=== PATIENT | male | born 1970 | race Caucasian/White ===

== ENCOUNTER 2018-10-02 22:01 | Inpatient (IN) | payer SELFPAY ==
[2018-10-02] MEDS ORDERED: Insulin Regular, Human 100 Units/ML 10 ML Vial IVPUSH ONE ×2 (22:28→23:40)
[2018-10-02] MEDS ORDERED: Sodium Chloride 0.9% 1,000 ML IV ONE (22:28)
--- NOTE | 2018-10-02 22:28 | EDM.PDOC ---
ED HPI GENERAL MEDICAL PROBLEM - General Chief Complaint: Lower Extremity Injury/Pain Stated Complaint: SWELLING ON RT FOOT Time Seen by Provider: 10/02/18 22:25 Source of Information: Reports: Patient - History of Present Illness INITIAL COMMENTS - FREE TEXT/NARRATIVE: HISTORY AND PHYSICAL: History of present illness: [Patient presents with diabetic foot ulcer concerning the right great toe area proximal toes open third degree foot ulcer with cellulitis or some exudate for culture will obtain this Patient is a noncompliant diabetic he has not taken his medication for 4 months , he is agreeable to lab and x-ray but is already mentioning that he refuses to stay in the hospital He denies fever nausea vomiting chills sweats no chest pain shortness breath headache dizziness palpitation no bowel or urine symptoms Edition was agreeable to the lab and x-ray will follow on redirect as patient allows ] Review of systems: As per history of present illness and below otherwise all systems reviewed and negative. Past medical history: As per history of present illness and as reviewed below otherwise noncontributory. Surgical history: As per history of present illness and as reviewed below otherwise noncontributory. Social history: No reported history of drug or alcohol abuse. Family history: As per history of present illness and as reviewed below otherwise noncontributory. Physical exam: HEENT: Atraumatic, normocephalic, pupils reactive, negative for conjunctival pallor or scleral icterus, mucous membranes moist, throat clear, neck supple, nontender, trachea midline. Lungs: Clear to auscultation, breath sounds equal bilaterally, chest nontender. Heart: S1S2, regular, negative for clicks, rubs, or JVD. Abdomen: Soft, nondistended, nontender. Negative for masses or hepatosplenomegaly. Negative for costovertebral tenderness. Pelvis: Stable nontender. Genitourinary: Deferred. Rectal: Deferred. Extremities: Atraumatic, negative for cords or calf pain. Neurovascular unremarkable. Right foot unaffected above the ankle he does have a large blister lesion on the dorsum of his foot as well as a's third degree diabetic ulcer over the proximal medial great toe with some exudate in the ulcer for culture Neuro: Awake, alert, oriented. Cranial nerves II through XII unremarkable. Cerebellum unremarkable. Motor and sensory unremarkable throughout. Exam nonfocal. Diagnostics: []CBC CMP UA blood cultures 2 Wound culture X-ray right foot 2 views Chest 1 view EKG Therapeutics: [ normal saline Insulin ]10 units IV/10 units subcutaneous, 5 units regular insulin IV Rocephin 1 g IV Impression: [ diabetic foot ulcer glucose greater than 500 on arrival Uncontrolled diabetes Medication noncompliance Definitive disposition and diagnosis as appropriate pending reevaluation and review of above. - Related Data Allergies Allergy/AdvReac Type Severity Reaction Status Date / Time No Known Allergies Allergy Verified 10/02/18 22:14 Home Meds: Home Meds . [No Known Home Meds] 10/02/18 [History] Review of Systems - Review of Systems Review Of Systems: See Below ED EXAM, GENERAL - Physical Exam Exam: See Below Course - Vital Signs Last Recorded V/S: Last Vital Signs Temp 97.9 F 10/02/18 23:07 Pulse 94 10/02/18 23:07 Resp 18 10/02/18 23:07 BP 138/65 10/02/18 23:07 Pulse Ox 98 10/02/18 23:07 - Orders/Labs/Meds Orders: Active Orders 24 hr Category Date Time Status EKG Documentation Completion [RC] STAT Care 10/02/18 22:32 Active CULTURE BLOOD [BC] Stat Lab 10/02/18 22:45 Received CULTURE BLOOD [BC] Stat Lab 10/02/18 22:45 Received CULTURE WOUND [RM] Stat Lab 10/02/18 20:23 Received Sodium Chloride 0.9% [Normal Saline] 1,000 ml Med 10/02/18 23:45 Active IV STAT Blood Culture x2 Reflex Set [OM.PC] Stat Oth 10/02/18 22:29 Ordered Medication Orders Sodium Chloride (Normal Saline) 1,000 mls @ 125 mls/hr IV STAT MAGDA Labs: Laboratory Tests 10/02/18 10/02/18 10/02/18 Range/Units 22:20 22:20 23:10 WBC 12.08 H (4.0-11.0) K/uL RBC 3.82 L (4.50-5.90) M/uL Hgb 11.0 L (13.0-17.0) g/dL Hct 33.5 L (38.0-50.0) % MCV 87.7 (80.0-98.0) fL MCH 28.8 (27.0-32.0) pg MCHC 32.8 (31.0-37.0) g/dL RDW Std Deviation 42.1 (28.0-62.0) fl RDW Coeff of Hiro 13 (11.0-15.0) % Plt Count 305 (150-400) K/uL MPV 10.10 (7.40-12.00) fL Neut % (Auto) 77.0 (48.0-80.0) % Lymph % (Auto) 16.4 (16.0-40.0) % [place] % (Auto) 4.8 (0.0-15.0) % Eos % (Auto) 1.3 (0.0-7.0) % Baso % (Auto) 0.5 (0.0-1.5) % Neut # (Auto) 9.3 H (1.4-5.7) K/uL Lymph # (Auto) 2.0 (0.6-2.4) K/uL [place] # (Auto) 0.6 (0.0-0.8) K/uL Eos # (Auto) 0.2 (0.0-0.7) K/uL Baso # (Auto) 0.1 (0.0-0.1) K/uL Nucleated RBC % 0.0 /100WBC Nucleated RBCs # 0 K/uL Sodium 133 L (136-148) mmol/L Potassium 4.9 (3.5-5.1) mmol/L Chloride 95 L (98-107) mmol/L Carbon Dioxide 28.6 (21.0-32.0) mmol/L BUN 26 H (7.0-18.0) mg/dL Creatinine 1.4 H (0.8-1.3) mg/dL Est Cr Clr Drug Dosing 51.93 mL/min Estimated GFR (MDRD) 54.1 ml/min Glucose 731 H* (74-106) mg/dL Calcium 9.5 (8.5-10.1) mg/dL Total Bilirubin 0.5 (0.2-1.0) mg/dL AST 13 L (15-37) IU/L ALT 28 (14-63) IU/L Alkaline Phosphatase 116 (46-116) U/L Total Protein 7.6 (6.4-8.2) g/dL Albumin 3.4 (3.4-5.0) g/dL Globulin 4.2 H (2.6-4.0) g/dL Albumin/Globulin Ratio 0.8 L (0.9-1.6) Urine Color YELLOW Urine Appearance CLEAR Urine pH 6.0 (5.0-8.0) Ur Specific [place] <= 1.005 (1.001-1.035) Urine Protein NEGATIVE (NEGATIVE) mg/dL Urine Glucose (UA) >=1000 (NEGATIVE) mg/dL Urine Ketones NEGATIVE (NEGATIVE) mg/dL Urine Occult Blood SMALL H (NEGATIVE) Urine Nitrite NEGATIVE (NEGATIVE) Urine Bilirubin NEGATIVE (NEGATIVE) Urine Urobilinogen 0.2 (<2.0) EU/dL Ur Leukocyte Esterase NEGATIVE (NEGATIVE) Urine RBC 0-2 (0-2/HPF) Urine WBC 0-1 (0-5/HPF) Ur Epithelial Cells RARE (NONE-FEW) Urine Bacteria RARE (NEGATIVE) Meds: Medications Generic Name Dose Route Start Last Admin Trade Name Freq PRN Reason Stop Dose Admin Sodium Chloride 1,000 mls @ 125 mls/hr 10/02/18 23:45 Normal Saline IV STAT MAGDA Discontinued Medications Generic Name Dose Route Start Last Admin Trade Name Freq PRN Reason Stop Dose Admin Sodium Chloride 1,000 mls @ 999 mls/hr 10/02/18 22:28 10/02/18 22:30 Normal Saline IV 10/02/18 23:28 999 mls/hr STAT ONE Administration Ceftriaxone Sodium/Dextrose 1 50 mls @ 100 mls/hr 10/02/18 22:30 10/02/18 22: 37 gm/ Premix IV 10/02/18 22:59 100 mls/hr ONETIME ONE Administration Insulin Human Regular 10 unit 10/02/18 22:28 10/02/18 22:35 Novolin R IVPUSH 10/02/18 22:29 10 unit ONETIME ONE Administration Protocol Insulin Human Regular 10 unit 10/02/18 22:29 10/02/18 22:38 Novolin R SUBCUT 10/02/18 22:30 10 units NOW STA Administration Protocol Insulin Human Regular 5 unit 10/02/18 23:40 Novolin R IVPUSH 10/02/18 23:41 ONETIME ONE Protocol Departure - Departure Time of Disposition: 23:46 Disposition: Admitted As Inpatient 66 Condition: Fair Clinical Impression: Hyperglycemia, Diabetic foot ulcer, Noncompliance with medication regimen - Discharge Information Referrals: PCP,None [Primary Care Provider] - Forms: ED Department Discharge - My Orders Last 24 Hours: My Active Orders 10/02/18 20:23 CULTURE WOUND [RM] Stat 10/02/18 22:29 Blood Culture x2 Reflex Set [OM.PC] Stat 10/02/18 22:32 EKG Documentation Completion [RC] STAT 10/02/18 22:45 CULTURE BLOOD [BC] Stat CULTURE BLOOD [BC] Stat 10/02/18 23:45 Sodium Chloride 0.9% [Normal Saline] 1,000 ml IV STAT - Assessment/Plan Last 24 Hours: My Active Orders 10/02/18 20:23 CULTURE WOUND [RM] Stat 10/02/18 22:29 Blood Culture x2 Reflex Set [OM.PC] Stat 10/02/18 22:32 EKG Documentation Completion [RC] STAT 10/02/18 22:45 CULTURE BLOOD [BC] Stat CULTURE BLOOD [BC] Stat 10/02/18 23:45 Sodium Chloride 0.9% [Normal Saline] 1,000 ml IV STAT
[2018-10-02] MEDS ORDERED: Insulin Regular, Human 100 Units/ML 10 ML Vial SUBCUT STA (22:29)
[2018-10-02] MEDS ORDERED: cefTRIAXone 1 GM in Premix Bag 1 BAG IV ONE (22:30)
--- NOTE | 2018-10-02 23:19 | CR ---
INDICATION: pain TECHNIQUE: Chest 1 view. COMPARISON: None. FINDINGS: Cardiovascular and mediastinum: Heart size and vasculature are normal in caliber and appearance. Mediastinum is within normal limits. Lungs and pleural space: Lungs are clear. No sign of infiltrate or mass. No sign of pleural effusion. No pneumothorax. Bones and soft tissues: No significant findings. IMPRESSION: Unremarkable chest. Dictated by: Te Nicole MD @ 10/02/2018 23:17:53 (Electronically Signed)
--- NOTE | 2018-10-02 23:24 | CR ---
INDICATION: Pain, diabetic ulcer TECHNIQUE: Two views right foot COMPARISON: None FINDINGS: Bones: Alignment is normal. No fractures or bone lesions. Joint spaces: Unremarkable. Soft tissues: Soft tissue edema and punctate radiopaque foreign bodies involving the plantar soft tissues adjacent to the MTP joints. IMPRESSION: Soft tissue edema punctate radiopaque foreign bodies involving the plantar soft tissues adjacent to the MTP joints. Dictated by Te Nicole MD @ 10/02/2018 11:23:13 PM Dictated by: Te Nicole MD @ 10/02/2018 23:23:17 (Electronically Signed)
[2018-10-03] MEDS: Sodium Chloride 0.9% 1,000 ML IV SCH ×3 (00:03→20:37)
[2018-10-03 05:59] LABS: CHLORIDE,CL 106 mmol/L (98-107); SODIUM,NA 141 mmol/L (136-148)
[2018-10-03] MEDS: Insulin Aspart 100 Units/ML 3 ML Pen SUBCUT SCH ×4 (07:59→21:47)
[2018-10-03] MEDS: Piperacillin/Tazobactam 4.5 GM in Sodium Chloride 0.9% 100 ML IV SCH ×2 (08:59→16:36)
[2018-10-03 09:49] LABS: HEMOGLOBIN A1C 14.8 % (4.5-6.2)
[2018-10-03] MEDS ORDERED: oxyCODONE 5 MG Tab PO PRN (10:06)
[2018-10-03] MEDS ORDERED: Morphine 2 MG/ML Syringe IVPUSH PRN (10:06)
[2018-10-03] MEDS ORDERED: Ondansetron 4 MG/2 ML SDV IVPUSH PRN (10:07)
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
[2018-10-03] MEDS: Heparin Sodium 5,000 Units/ML Vial SUBCUT SCH ×2 (10:45→21:38)
[2018-10-03] MEDS ORDERED: Iopamidol 755 Mg/ML 100 ML Bottle IVPUSH ONE (11:26)
--- NOTE | 2018-10-03 13:00 | CT ---
EXAMINATION: CT right foot with contrast HISTORY: Ulcer COMPARISON: Radiographs dated 10/02/2018 TECHNIQUE: Axial CT imaging obtained through the right foot following the administration of 85 mL of Isovue-370 in the right antecubital fossa. Coronal and sagittal reconstructions obtained. FINDINGS: There is no acute osseous abnormality, dislocation, or fracture. Bone mineralization and joint spaces are grossly preserved. Soft tissue swelling is noted overlying the distal foot cutaneous fluid collections overlying the dorsal aspect of the distal metatarsals. There is no evidence of a subcutaneous collection or abscess. No bony erosion. Moderate vascular calcifications identified. IMPRESSION: 1. Cutaneous fluid collections overlying the forefoot and soft tissue swelling without evidence of an abscess or osseous erosions.
[2018-10-03] MEDS: Silver Sulfadiazine 1% Crm 50 GM Tube TOP SCH (16:00)
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
[2018-10-03] MEDS: Insulin Glargine,Human Rec. Analog 100 Units/ML 3 ML Pen SUBCUT SCH (21:49)
[2018-10-04] MEDS: Piperacillin/Tazobactam 4.5 GM in Sodium Chloride 0.9% 100 ML IV SCH ×3 (00:30→16:07)
[2018-10-04 06:42] LABS: CHLORIDE,CL 106 mmol/L (98-107); SODIUM,NA 139 mmol/L (136-148)
[2018-10-04] MEDS: Silver Sulfadiazine 1% Crm 50 GM Tube TOP SCH (08:38)
[2018-10-04] MEDS: Insulin Aspart 100 Units/ML 3 ML Pen SUBCUT SCH ×4 (08:38→21:23)
[2018-10-04] MEDS: Sodium Chloride 0.9% 1,000 ML IV SCH ×2 (09:36→19:08)
[2018-10-04] MEDS: Heparin Sodium 5,000 Units/ML Vial SUBCUT SCH ×2 (09:43→21:24)
[2018-10-04] MEDS: Acetaminophen 325 MG Tab PO PRN ×2 (10:06→21:36)
--- NOTE | 2018-10-04 14:02 | PCM.PN ---
- General Info Date of Service: 10/04/18 - Patient Data Vitals - Most Recent: Last Vital Signs Temp 37.2 C 10/04/18 12:00 Pulse 86 10/04/18 12:00 Resp 20 10/04/18 12:00 BP 112/70 10/04/18 12:00 Pulse Ox 94 L 10/04/18 12:00 Weight - Most Recent: 61.4 kg I&O - Last 24 Hours: Intake & Output 10/03/18 10/04/18 10/04/18 22:59 06:59 14:59 Intake Total 1610 1070 Output Total 1400 1000 Balance 210 70 Lab Results Last 24 Hours: Laboratory Results - last 24 hr 10/03/18 10/03/18 10/04/18 Range/Units 16:40 21:46 06:03 WBC 11.16 H (4.0-11.0) K/uL RBC 3.76 L (4.50-5.90) M/uL Hgb 10.6 L (13.0-17.0) g/dL Hct 32.4 L (38.0-50.0) % MCV 86.2 (80.0-98.0) fL MCH 28.2 (27.0-32.0) pg MCHC 32.7 (31.0-37.0) g/dL RDW Std Deviation 39.8 (28.0-62.0) fl RDW Coeff of Hiro 13 (11.0-15.0) % Plt Count 262 (150-400) K/uL MPV 9.50 (7.40-12.00) fL Neut % (Auto) 77.7 (48.0-80.0) % Lymph % (Auto) 14.7 L (16.0-40.0) % [place] % (Auto) 6.1 (0.0-15.0) % Eos % (Auto) 1.2 (0.0-7.0) % Baso % (Auto) 0.3 (0.0-1.5) % Neut # (Auto) 8.7 H (1.4-5.7) K/uL Lymph # (Auto) 1.6 (0.6-2.4) K/uL [place] # (Auto) 0.7 (0.0-0.8) K/uL Eos # (Auto) 0.1 (0.0-0.7) K/uL Baso # (Auto) 0.0 (0.0-0.1) K/uL Nucleated RBC % 0.0 /100WBC Nucleated RBCs # 0 K/uL Sodium (136-148) mmol/L Potassium (3.5-5.1) mmol/L Chloride (98-107) mmol/L Carbon Dioxide (21.0-32.0) mmol/L BUN (7.0-18.0) mg/dL Creatinine (0.8-1.3) mg/dL Est Cr Clr Drug Dosing mL/min Estimated GFR (MDRD) ml/min Glucose (74-106) mg/dL POC Glucose 175 H 298 H (60-110) mg/dL Calcium (8.5-10.1) mg/dL 10/04/18 10/04/18 10/04/18 Range/Units 06:03 06:18 12:00 WBC (4.0-11.0) K/uL RBC (4.50-5.90) M/uL Hgb (13.0-17.0) g/dL Hct (38.0-50.0) % MCV (80.0-98.0) fL MCH (27.0-32.0) pg MCHC (31.0-37.0) g/dL RDW Std Deviation (28.0-62.0) fl RDW Coeff of Hior (11.0-15.0) % Plt Count (150-400) K/uL MPV (7.40-12.00) fL Neut % (Auto) (48.0-80.0) % Lymph % (Auto) (16.0-40.0) % [place] % (Auto) (0.0-15.0) % Eos % (Auto) (0.0-7.0) % Baso % (Auto) (0.0-1.5) % Neut # (Auto) (1.4-5.7) K/uL Lymph # (Auto) (0.6-2.4) K/uL [place] # (Auto) (0.0-0.8) K/uL Eos # (Auto) (0.0-0.7) K/uL Baso # (Auto) (0.0-0.1) K/uL Nucleated RBC % /100WBC Nucleated RBCs # K/uL Sodium 139 (136-148) mmol/L Potassium 4.0 (3.5-5.1) mmol/L Chloride 106 (98-107) mmol/L Carbon Dioxide 26.1 (21.0-32.0) mmol/L BUN 10 (7.0-18.0) mg/dL Creatinine 0.8 (0.8-1.3) mg/dL Est Cr Clr Drug Dosing 90.88 mL/min Estimated GFR (MDRD) > 60.0 ml/min Glucose 188 H (74-106) mg/dL POC Glucose 177 H 225 H (60-110) mg/dL Calcium 8.8 (8.5-10.1) mg/dL Simba Results Last 24 Hours: Microbiology 10/02/18 22:45 Aerobic Blood Culture - Preliminary Blood - Venous - Lab Draw NO GROWTH AFTER 1 DAY Anaerobic Blood Culture - Preliminary NO GROWTH AFTER 1 DAY 10/02/18 22:45 Aerobic Blood Culture - Preliminary Blood - Venous NO GROWTH AFTER 1 DAY Anaerobic Blood Culture - Preliminary NO GROWTH AFTER 1 DAY Med Orders - Current: Current Medications Acetaminophen (Tylenol) 650 mg PO Q4H PRN PRN Reason: Pain (mild 1-3) Last Admin: 10/04/18 10:06 Dose: 650 mg Heparin Sodium (Porcine) (Heparin Sodium) 5,000 units SUBCUT Q12H [facility] Last Admin: 10/04/18 09:43 Dose: 5,000 units Sodium Chloride (Normal Saline) 1,000 mls @ 125 mls/hr IV STAT [facility] Last Admin: 10/04/18 09:36 Dose: 125 mls/hr Piperacillin Sod/Tazobactam (Sod 4.5 gm/ Sodium Chloride) 100 mls @ 100 mls/hr IV Q8H [facility] Last Admin: 10/04/18 08:38 Dose: 100 mls/hr Vancomycin HCl 1 gm/ Sodium (Chloride) 250 mls @ 166.667 mls/hr IV Q12H [facility] Last Admin: 10/04/18 09:36 Dose: 166.667 mls/hr Insulin Aspart (Novolog) 0 unit SUBCUT QIDACANDBED [facility]; Protocol Last Admin: 10/04/18 12:02 Dose: 4 units Insulin Glargine (Lantus Solostar) 10 units SUBCUT BEDTIME [facility] Last Admin: 10/03/18 21:49 Dose: 10 units Morphine Sulfate (Morphine) 2 mg IVPUSH Q2H PRN PRN Reason: Pain (severe 7-10) Ondansetron HCl (Zofran) 4 mg IVPUSH Q4H PRN PRN Reason: Nausea Oxycodone HCl (Oxycodone) 5 mg PO Q4H PRN PRN Reason: Pain (moderate 4-6) Silver Sulfadiazine (Silvadene 1% Cream 50 Gm) 1 gm TOP DAILY [facility] Last Admin: 10/04/18 08:38 Dose: 1 applic Vancomycin HCl (Pharmacy To Dose - Vancomycin) 1 dose .XX ASDIRECTED MAGDA Discontinued Medications Sodium Chloride (Normal Saline) 1,000 mls @ 999 mls/hr IV STAT ONE Stop: 10/02/18 23:28 Last Admin: 10/02/18 22:30 Dose: 999 mls/hr Ceftriaxone Sodium/Dextrose 1 (gm/ Premix) 50 mls @ 100 mls/hr IV ONETIME ONE Stop: 10/02/18 22:59 Last Admin: 10/02/18 22:37 Dose: 100 mls/hr Insulin Human Regular (Novolin R) 10 unit IVPUSH ONETIME ONE; Protocol Stop: 10/02/18 22:29 Last Admin: 10/02/18 22:35 Dose: 10 unit Insulin Human Regular (Novolin R) 10 unit SUBCUT NOW STA; Protocol Stop: 10/02/18 22:30 Last Admin: 10/02/18 22:38 Dose: 10 units Insulin Human Regular (Novolin R) 5 unit IVPUSH ONETIME ONE; Protocol Stop: 10/02/18 23:41 Last Admin: 10/03/18 00:00 Dose: 5 units Iopamidol (Isovue-370 (76%)) 100 ml IVPUSH ONETIME ONE Stop: 10/03/18 11:27 Last Admin: 10/03/18 11:27 Dose: 100 ml - Exam General: Alert, Oriented Neck: Supple Lungs: Clear to Auscultation, Normal Respiratory Effort Cardiovascular: Regular Rate, Regular Rhythm GI/Abdominal Exam: Soft, Non-Tender, No Organomegaly Extremities: Other (right foot bandaged) - Problem List Review Problem List Initiated/Reviewed/Updated: Yes - My Orders Last 24 Hours: My Active Orders 10/03/18 21:00 Insulin Glarg,Human.Rec.Analog [LantUS Solostar] 10 units SUBCUT BEDTIME - Plan Plan:: This 48 year old male admitted with R diabetic foot ulcer and hyperglycemia 1. DM Foot Ulcer:continue Vancomycin and Zosyn. BC and wound culture pending. Dr Friend performed debridement 2. DM Type 2; started lantus and sliding scale premeal insulin VTE prophylaxis: Heparin Dispo: 2-4 days pending improvement.
--- NOTE | 2018-10-04 16:05 | PCM.CONSN ---
- General Info Date of Service: 10/04/18 Admission Dx/Problem (Free Text): Admission Diagnosis/Problem Admission Diagnosis/Problem Hyperglycemia, Diabetic foot ulcer R Subjective Update: Patient states he feels well and denies nausea/vomiting/fever or other complaint. - Patient Data Vitals - Most Recent: Last Vital Signs Temp 37.2 C 10/04/18 12:00 Pulse 86 10/04/18 12:00 Resp 20 10/04/18 12:00 BP 112/70 10/04/18 12:00 Pulse Ox 94 L 10/04/18 12:00 Weight - Most Recent: 61.4 kg I&O - Last 24 Hours: Intake & Output 10/04/18 10/04/18 10/04/18 06:59 14:59 22:59 Intake Total 1070 Output Total 1000 Balance 70 Lab Results Last 24 Hours: Laboratory Results - last 24 hr 10/03/18 10/03/18 10/04/18 Range/Units 16:40 21:46 06:03 WBC 11.16 H (4.0-11.0) K/uL RBC 3.76 L (4.50-5.90) M/uL Hgb 10.6 L (13.0-17.0) g/dL Hct 32.4 L (38.0-50.0) % MCV 86.2 (80.0-98.0) fL MCH 28.2 (27.0-32.0) pg MCHC 32.7 (31.0-37.0) g/dL RDW Std Deviation 39.8 (28.0-62.0) fl RDW Coeff of Hiro 13 (11.0-15.0) % Plt Count 262 (150-400) K/uL MPV 9.50 (7.40-12.00) fL Neut % (Auto) 77.7 (48.0-80.0) % Lymph % (Auto) 14.7 L (16.0-40.0) % [place] % (Auto) 6.1 (0.0-15.0) % Eos % (Auto) 1.2 (0.0-7.0) % Baso % (Auto) 0.3 (0.0-1.5) % Neut # (Auto) 8.7 H (1.4-5.7) K/uL Lymph # (Auto) 1.6 (0.6-2.4) K/uL [place] # (Auto) 0.7 (0.0-0.8) K/uL Eos # (Auto) 0.1 (0.0-0.7) K/uL Baso # (Auto) 0.0 (0.0-0.1) K/uL Nucleated RBC % 0.0 /100WBC Nucleated RBCs # 0 K/uL Sodium (136-148) mmol/L Potassium (3.5-5.1) mmol/L Chloride (98-107) mmol/L Carbon Dioxide (21.0-32.0) mmol/L BUN (7.0-18.0) mg/dL Creatinine (0.8-1.3) mg/dL Est Cr Clr Drug Dosing mL/min Estimated GFR (MDRD) ml/min Glucose (74-106) mg/dL POC Glucose 175 H 298 H (60-110) mg/dL Calcium (8.5-10.1) mg/dL 10/04/18 10/04/18 10/04/18 Range/Units 06:03 06:18 12:00 WBC (4.0-11.0) K/uL RBC (4.50-5.90) M/uL Hgb (13.0-17.0) g/dL Hct (38.0-50.0) % MCV (80.0-98.0) fL MCH (27.0-32.0) pg MCHC (31.0-37.0) g/dL RDW Std Deviation (28.0-62.0) fl RDW Coeff of Hiro (11.0-15.0) % Plt Count (150-400) K/uL MPV (7.40-12.00) fL Neut % (Auto) (48.0-80.0) % Lymph % (Auto) (16.0-40.0) % [place] % (Auto) (0.0-15.0) % Eos % (Auto) (0.0-7.0) % Baso % (Auto) (0.0-1.5) % Neut # (Auto) (1.4-5.7) K/uL Lymph # (Auto) (0.6-2.4) K/uL [place] # (Auto) (0.0-0.8) K/uL Eos # (Auto) (0.0-0.7) K/uL Baso # (Auto) (0.0-0.1) K/uL Nucleated RBC % /100WBC Nucleated RBCs # K/uL Sodium 139 (136-148) mmol/L Potassium 4.0 (3.5-5.1) mmol/L Chloride 106 (98-107) mmol/L Carbon Dioxide 26.1 (21.0-32.0) mmol/L BUN 10 (7.0-18.0) mg/dL Creatinine 0.8 (0.8-1.3) mg/dL Est Cr Clr Drug Dosing 90.88 mL/min Estimated GFR (MDRD) > 60.0 ml/min Glucose 188 H (74-106) mg/dL POC Glucose 177 H 225 H (60-110) mg/dL Calcium 8.8 (8.5-10.1) mg/dL [place] Results Last 24 Hours: Microbiology 10/02/18 22:45 Aerobic Blood Culture - Preliminary Blood - Venous - Lab Draw NO GROWTH AFTER 1 DAY Anaerobic Blood Culture - Preliminary NO GROWTH AFTER 1 DAY 10/02/18 22:45 Aerobic Blood Culture - Preliminary Blood - Venous NO GROWTH AFTER 1 DAY Anaerobic Blood Culture - Preliminary NO GROWTH AFTER 1 DAY Med Orders - Current: Current Medications Acetaminophen (Tylenol) 650 mg PO Q4H PRN PRN Reason: Pain (mild 1-3) Last Admin: 10/04/18 10:06 Dose: 650 mg Heparin Sodium (Porcine) (Heparin Sodium) 5,000 units SUBCUT Q12H [facility] Last Admin: 10/04/18 09:43 Dose: 5,000 units Sodium Chloride (Normal Saline) 1,000 mls @ 125 mls/hr IV STAT [facility] Last Admin: 10/04/18 09:36 Dose: 125 mls/hr Piperacillin Sod/Tazobactam (Sod 4.5 gm/ Sodium Chloride) 100 mls @ 100 mls/hr IV Q8H [facility] Last Admin: 10/04/18 08:38 Dose: 100 mls/hr Vancomycin HCl 1 gm/ Sodium (Chloride) 250 mls @ 166.667 mls/hr IV Q12H [facility] Last Admin: 10/04/18 09:36 Dose: 166.667 mls/hr Insulin Aspart (Novolog) 0 unit SUBCUT QIDACANDBED [facility]; Protocol Last Admin: 10/04/18 12:02 Dose: 4 units Insulin Glargine (Lantus Solostar) 10 units SUBCUT BEDTIME [facility] Last Admin: 10/03/18 21:49 Dose: 10 units Morphine Sulfate (Morphine) 2 mg IVPUSH Q2H PRN PRN Reason: Pain (severe 7-10) Ondansetron HCl (Zofran) 4 mg IVPUSH Q4H PRN PRN Reason: Nausea Oxycodone HCl (Oxycodone) 5 mg PO Q4H PRN PRN Reason: Pain (moderate 4-6) Silver Sulfadiazine (Silvadene 1% Cream 50 Gm) 1 gm TOP DAILY [facility] Last Admin: 10/04/18 08:38 Dose: 1 applic Vancomycin HCl (Pharmacy To Dose - Vancomycin) 1 dose .XX ASDIRECTED [facility] Discontinued Medications Sodium Chloride (Normal Saline) 1,000 mls @ 999 mls/hr IV STAT ONE Stop: 10/02/18 23:28 Last Admin: 10/02/18 22:30 Dose: 999 mls/hr Ceftriaxone Sodium/Dextrose 1 (gm/ Premix) 50 mls @ 100 mls/hr IV ONETIME ONE Stop: 10/02/18 22:59 Last Admin: 10/02/18 22:37 Dose: 100 mls/hr Insulin Human Regular (Novolin R) 10 unit IVPUSH ONETIME ONE; Protocol Stop: 10/02/18 22:29 Last Admin: 10/02/18 22:35 Dose: 10 unit Insulin Human Regular (Novolin R) 10 unit SUBCUT NOW STA; Protocol Stop: 10/02/18 22:30 Last Admin: 10/02/18 22:38 Dose: 10 units Insulin Human Regular (Novolin R) 5 unit IVPUSH ONETIME ONE; Protocol Stop: 10/02/18 23:41 Last Admin: 10/03/18 00:00 Dose: 5 units Iopamidol (Isovue-370 (76%)) 100 ml IVPUSH ONETIME ONE Stop: 10/03/18 11:27 Last Admin: 10/03/18 11:27 Dose: 100 ml - Exam Peripheral Pulses: 1+: Dorsalis Pedis (R), 2+: Posterior Tibial (R) Skin: Warm Wound/Incisions: Healing Well, Drainage, Erythema Improving Consult PN Assessment/Plan (1) Diabetic foot ulcer SNOMED Code(s): 332609555 Code(s): E11.621 - TYPE 2 DIABETES MELLITUS WITH FOOT ULCER; L97.509 - NON- PRESSURE CHRONIC ULCER OTH PRT UNSP FOOT W UNSP SEVERITY Current Visit: Yes Qualifiers: Diabetic foot ulcer location: toe Diabetes mellitus type: type 2 Laterality: right Non-pressure ulcer stage: with fat layer exposed Qualified Code(s): E11.621 - Type 2 diabetes mellitus with foot ulcer; L97.512 - Non-pressure chronic ulcer of other part of right foot with fat layer exposed Problem List Initiated/Reviewed/Updated: Yes My Orders Last 24 Hours: My Active Orders 10/03/18 15:42 Communication Order [RC] DAILY 10/03/18 16:00 Silver Sulfadiazine [Silvadene 1% Cream 50 GM] 1 gm TOP DAILY Plan: Assessments: One day status post debridement of right foot ulcer and drainage of bulla formations to right foot with removal of devitalized skin. No sign of infection. Plan: Dressing change by nurse this morning. I noted strike through of clear drainage to outer dressing. Upon removal of kerlix and gauze the right foot is stable with improved color to exposed dermis on dorsal and plantar aspects following yesterday's debridement. The medial right great toe subcutaneous ulcer is unchanged. Silvdadene and xeroform applied earlier today is left in place and new gauze and kerlix roll is applied about right foot. Continue IV antibiotics. Patient's ulcers are not excessively deep, maximum depth is subcutaneous. If blood sugar is brought under control patient could be treated on outpatient basis provided he can be compliant. I will follow and will examine again tomorrow. Continue with daily wound care per orders. I agree with goal of patient being stable for discharge in 2-4 days and could follow patient on outpatient basis after that.
[2018-10-04] MEDS: Insulin Glargine,Human Rec. Analog 100 Units/ML 3 ML Pen SUBCUT SCH (21:24)
[2018-10-05] MEDS: Piperacillin/Tazobactam 4.5 GM in Sodium Chloride 0.9% 100 ML IV SCH ×3 (06:30→16:48)
[2018-10-05] MEDS: Sodium Chloride 0.9% 1,000 ML IV SCH ×2 (06:43→16:47)
[2018-10-05 06:58] LABS: CHLORIDE,CL 107 mmol/L (98-107); SODIUM,NA 140 mmol/L (136-148)
[2018-10-05] MEDS: Insulin Aspart 100 Units/ML 3 ML Pen SUBCUT SCH ×4 (09:08→21:33)
[2018-10-05] MEDS: Silver Sulfadiazine 1% Crm 50 GM Tube TOP SCH (09:20)
[2018-10-05] MEDS: Heparin Sodium 5,000 Units/ML Vial SUBCUT SCH ×2 (10:25→21:32)
--- NOTE | 2018-10-05 11:34 | PCM.PN ---
- General Info Date of Service: 10/05/18 - Patient Data Vitals - Most Recent: Last Vital Signs Temp 36.6 C 10/05/18 07:00 Pulse 79 10/05/18 07:00 Resp 16 10/05/18 07:00 BP 100/59 L 10/05/18 07:00 Pulse Ox 98 10/05/18 07:00 Weight - Most Recent: 61.4 kg I&O - Last 24 Hours: Intake & Output 10/04/18 10/05/18 10/05/18 22:59 06:59 14:59 Intake Total 5295 1939 Output Total 2209 1250 Balance 3093 689 Lab Results Last 24 Hours: Laboratory Results - last 24 hr 10/04/18 10/04/18 10/04/18 Range/Units 12:00 16:57 21:01 WBC (4.0-11.0) K/uL RBC (4.50-5.90) M/uL Hgb (13.0-17.0) g/dL Hct (38.0-50.0) % MCV (80.0-98.0) fL MCH (27.0-32.0) pg MCHC (31.0-37.0) g/dL RDW Std Deviation (28.0-62.0) fl RDW Coeff of Hiro (11.0-15.0) % Plt Count (150-400) K/uL MPV (7.40-12.00) fL Neut % (Auto) (48.0-80.0) % Lymph % (Auto) (16.0-40.0) % [place] % (Auto) (0.0-15.0) % Eos % (Auto) (0.0-7.0) % Baso % (Auto) (0.0-1.5) % Neut # (Auto) (1.4-5.7) K/uL Lymph # (Auto) (0.6-2.4) K/uL [place] # (Auto) (0.0-0.8) K/uL Eos # (Auto) (0.0-0.7) K/uL Baso # (Auto) (0.0-0.1) K/uL Nucleated RBC % /100WBC Nucleated RBCs # K/uL Sodium (136-148) mmol/L Potassium (3.5-5.1) mmol/L Chloride (98-107) mmol/L Carbon Dioxide (21.0-32.0) mmol/L BUN (7.0-18.0) mg/dL Creatinine (0.8-1.3) mg/dL Est Cr Clr Drug Dosing mL/min Estimated GFR (MDRD) ml/min Glucose (74-106) mg/dL POC Glucose 225 H 153 H (60-110) mg/dL Calcium (8.5-10.1) mg/dL Vancomycin Trough 7.5 (5.0-10.0) ug/mL 10/04/18 10/05/18 10/05/18 Range/Units 21:21 06:27 06:27 WBC 13.09 H (4.0-11.0) K/uL RBC 3.87 L (4.50-5.90) M/uL Hgb 11.0 L (13.0-17.0) g/dL Hct 33.4 L (38.0-50.0) % MCV 86.3 (80.0-98.0) fL MCH 28.4 (27.0-32.0) pg MCHC 32.9 (31.0-37.0) g/dL RDW Std Deviation 39.8 (28.0-62.0) fl RDW Coeff of Hiro 13 (11.0-15.0) % Plt Count 264 (150-400) K/uL MPV 9.80 (7.40-12.00) fL Neut % (Auto) 76.2 (48.0-80.0) % Lymph % (Auto) 13.4 L (16.0-40.0) % [place] % (Auto) 9.5 (0.0-15.0) % Eos % (Auto) 0.6 (0.0-7.0) % Baso % (Auto) 0.3 (0.0-1.5) % Neut # (Auto) 10.0 H (1.4-5.7) K/uL Lymph # (Auto) 1.8 (0.6-2.4) K/uL [place] # (Auto) 1.2 H (0.0-0.8) K/uL Eos # (Auto) 0.1 (0.0-0.7) K/uL Baso # (Auto) 0.0 (0.0-0.1) K/uL Nucleated RBC % 0.0 /100WBC Nucleated RBCs # 0 K/uL Sodium 140 (136-148) mmol/L Potassium 3.7 (3.5-5.1) mmol/L Chloride 107 (98-107) mmol/L Carbon Dioxide 26.1 (21.0-32.0) mmol/L BUN 13 (7.0-18.0) mg/dL Creatinine 0.9 (0.8-1.3) mg/dL Est Cr Clr Drug Dosing 80.78 mL/min Estimated GFR (MDRD) > 60.0 ml/min Glucose 95 (74-106) mg/dL POC Glucose 259 H (60-110) mg/dL Calcium 8.6 (8.5-10.1) mg/dL Vancomycin Trough (5.0-10.0) ug/mL 10/05/18 Range/Units 06:39 WBC (4.0-11.0) K/uL RBC (4.50-5.90) M/uL Hgb (13.0-17.0) g/dL Hct (38.0-50.0) % MCV (80.0-98.0) fL MCH (27.0-32.0) pg MCHC (31.0-37.0) g/dL RDW Std Deviation (28.0-62.0) fl RDW Coeff of Hiro (11.0-15.0) % Plt Count (150-400) K/uL MPV (7.40-12.00) fL Neut % (Auto) (48.0-80.0) % Lymph % (Auto) (16.0-40.0) % [place] % (Auto) (0.0-15.0) % Eos % (Auto) (0.0-7.0) % Baso % (Auto) (0.0-1.5) % Neut # (Auto) (1.4-5.7) K/uL Lymph # (Auto) (0.6-2.4) K/uL [place] # (Auto) (0.0-0.8) K/uL Eos # (Auto) (0.0-0.7) K/uL Baso # (Auto) (0.0-0.1) K/uL Nucleated RBC % /100WBC Nucleated RBCs # K/uL Sodium (136-148) mmol/L Potassium (3.5-5.1) mmol/L Chloride (98-107) mmol/L Carbon Dioxide (21.0-32.0) mmol/L BUN (7.0-18.0) mg/dL Creatinine (0.8-1.3) mg/dL Est Cr Clr Drug Dosing mL/min Estimated GFR (MDRD) ml/min Glucose (74-106) mg/dL POC Glucose 98 (60-110) mg/dL Calcium (8.5-10.1) mg/dL Vancomycin Trough (5.0-10.0) ug/mL [place] Results Last 24 Hours: Microbiology 10/02/18 20:23 Wound Culture - Final Foot, Right Staphylococcus Aureus 10/02/18 22:45 Aerobic Blood Culture - Preliminary Blood - Venous - Lab Draw NO GROWTH AFTER 2 DAYS Anaerobic Blood Culture - Preliminary NO GROWTH AFTER 2 DAYS 10/02/18 22:45 Aerobic Blood Culture - Preliminary Blood - Venous NO GROWTH AFTER 2 DAYS Anaerobic Blood Culture - Preliminary NO GROWTH AFTER 2 DAYS Med Orders - Current: Current Medications Acetaminophen (Tylenol) 650 mg PO Q4H PRN PRN Reason: Pain (mild 1-3) Last Admin: 10/04/18 21:36 Dose: 650 mg Heparin Sodium (Porcine) (Heparin Sodium) 5,000 units SUBCUT Q12H [facility] Last Admin: 10/05/18 10:25 Dose: 5,000 units Sodium Chloride (Normal Saline) 1,000 mls @ 125 mls/hr IV STAT [facility] Last Admin: 10/05/18 06:43 Dose: 125 mls/hr Piperacillin Sod/Tazobactam (Sod 4.5 gm/ Sodium Chloride) 100 mls @ 100 mls/hr IV Q8H [facility] Last Admin: 10/05/18 09:01 Dose: 100 mls/hr Vancomycin HCl 1.25 gm/ Sodium (Chloride) 250 mls @ 166.667 mls/hr IV Q12H [facility] Last Admin: 10/05/18 10:23 Dose: 166.667 mls/hr Insulin Aspart (Novolog) 0 unit SUBCUT QIDACANDBED [facility]; Protocol Last Admin: 10/05/18 09:08 Dose: Not Given Insulin Glargine (Lantus Solostar) 10 units SUBCUT BEDTIME [facility] Last Admin: 10/04/18 21:24 Dose: 10 units Morphine Sulfate (Morphine) 2 mg IVPUSH Q2H PRN PRN Reason: Pain (severe 7-10) Ondansetron HCl (Zofran) 4 mg IVPUSH Q4H PRN PRN Reason: Nausea Oxycodone HCl (Oxycodone) 5 mg PO Q4H PRN PRN Reason: Pain (moderate 4-6) Silver Sulfadiazine (Silvadene 1% Cream 50 Gm) 1 gm TOP DAILY [facility] Last Admin: 10/05/18 09:20 Dose: 1 applic Vancomycin HCl (Pharmacy To Dose - Vancomycin) 1 dose .XX ASDIRECTED [facility] Discontinued Medications Sodium Chloride (Normal Saline) 1,000 mls @ 999 mls/hr IV STAT ONE Stop: 10/02/18 23:28 Last Admin: 10/02/18 22:30 Dose: 999 mls/hr Ceftriaxone Sodium/Dextrose 1 (gm/ Premix) 50 mls @ 100 mls/hr IV ONETIME ONE Stop: 10/02/18 22:59 Last Admin: 10/02/18 22:37 Dose: 100 mls/hr Vancomycin HCl 1 gm/ Sodium (Chloride) 250 mls @ 166.667 mls/hr IV Q12H [facility] Last Admin: 10/04/18 21:24 Dose: 166.667 mls/hr Vancomycin HCl 1.25 gm/ Sodium (Chloride) 250 mls @ 166.667 mls/hr IV Q12H [facility] Vancomycin HCl 1.25 gm/ Sodium (Chloride) 250 mls @ 166.667 mls/hr IV Q12H [facility] Last Admin: 10/05/18 10:29 Dose: Not Given Insulin Human Regular (Novolin R) 10 unit IVPUSH ONETIME ONE; Protocol Stop: 10/02/18 22:29 Last Admin: 10/02/18 22:35 Dose: 10 unit Insulin Human Regular (Novolin R) 10 unit SUBCUT NOW STA; Protocol Stop: 10/02/18 22:30 Last Admin: 10/02/18 22:38 Dose: 10 units Insulin Human Regular (Novolin R) 5 unit IVPUSH ONETIME ONE; Protocol Stop: 10/02/18 23:41 Last Admin: 10/03/18 00:00 Dose: 5 units Iopamidol (Isovue-370 (76%)) 100 ml IVPUSH ONETIME ONE Stop: 10/03/18 11:27 Last Admin: 10/03/18 11:27 Dose: 100 ml - Exam General: Alert, Oriented HEENT: Pupils Equal Neck: Supple Lungs: Clear to Auscultation, Normal Respiratory Effort Cardiovascular: Regular Rate, Regular Rhythm Extremities: Other (right foot bandaged) - Problem List Review Problem List Initiated/Reviewed/Updated: Yes - My Orders Last 24 Hours: My Active Orders 10/06/18 05:11 BASIC METABOLIC PANEL,BMP [CHEM] AM CBC WITH AUTO DIFF [HEME] AM - Plan Plan:: This 48 year old male admitted with R diabetic foot ulcer and hyperglycemia 1. DM Foot Ulcer: continue Vancomycin and Zosyn. Dr Friend performed debridement 2. DM Type 2; continue lantus and sliding scale premeal insulin VTE prophylaxis: Heparin Dispo: 1-3 days pending improvement.
--- NOTE | 2018-10-05 14:00 | PCM.CONSN ---
- General Info Date of Service: 10/05/18 Admission Dx/Problem (Free Text): Admission Diagnosis/Problem Admission Diagnosis/Problem Hyperglycemia, Diabetic foot ulcer R Subjective Update: Patient states he feels well and denies nausea/vomiting/fever or other complaint. - Patient Data Vitals - Most Recent: Last Vital Signs Temp 35.8 C 10/05/18 12:00 Pulse 77 10/05/18 12:00 Resp 20 10/05/18 12:00 BP 147/83 H 10/05/18 12:00 Pulse Ox 97 10/05/18 12:00 Weight - Most Recent: 61.4 kg I&O - Last 24 Hours: Intake & Output 10/04/18 10/05/18 10/05/18 22:59 06:59 14:59 Intake Total 5295 1939 Output Total 2205 1250 Balance 3090 689 Lab Results Last 24 Hours: Laboratory Results - last 24 hr 10/04/18 10/04/18 10/04/18 Range/Units 16:57 21:01 21:21 WBC (4.0-11.0) K/uL RBC (4.50-5.90) M/uL Hgb (13.0-17.0) g/dL Hct (38.0-50.0) % MCV (80.0-98.0) fL MCH (27.0-32.0) pg MCHC (31.0-37.0) g/dL RDW Std Deviation (28.0-62.0) fl RDW Coeff of Hiro (11.0-15.0) % Plt Count (150-400) K/uL MPV (7.40-12.00) fL Neut % (Auto) (48.0-80.0) % Lymph % (Auto) (16.0-40.0) % [place] % (Auto) (0.0-15.0) % Eos % (Auto) (0.0-7.0) % Baso % (Auto) (0.0-1.5) % Neut # (Auto) (1.4-5.7) K/uL Lymph # (Auto) (0.6-2.4) K/uL [place] # (Auto) (0.0-0.8) K/uL Eos # (Auto) (0.0-0.7) K/uL Baso # (Auto) (0.0-0.1) K/uL Nucleated RBC % /100WBC Nucleated RBCs # K/uL Sodium (136-148) mmol/L Potassium (3.5-5.1) mmol/L Chloride (98-107) mmol/L Carbon Dioxide (21.0-32.0) mmol/L BUN (7.0-18.0) mg/dL Creatinine (0.8-1.3) mg/dL Est Cr Clr Drug Dosing mL/min Estimated GFR (MDRD) ml/min Glucose (74-106) mg/dL POC Glucose 153 H 259 H (60-110) mg/dL Calcium (8.5-10.1) mg/dL Vancomycin Trough 7.5 (5.0-10.0) ug/mL 10/05/18 10/05/18 10/05/18 Range/Units 06:27 06:27 06:39 WBC 13.09 H (4.0-11.0) K/uL RBC 3.87 L (4.50-5.90) M/uL Hgb 11.0 L (13.0-17.0) g/dL Hct 33.4 L (38.0-50.0) % MCV 86.3 (80.0-98.0) fL MCH 28.4 (27.0-32.0) pg MCHC 32.9 (31.0-37.0) g/dL RDW Std Deviation 39.8 (28.0-62.0) fl RDW Coeff of Hiro 13 (11.0-15.0) % Plt Count 264 (150-400) K/uL MPV 9.80 (7.40-12.00) fL Neut % (Auto) 76.2 (48.0-80.0) % Lymph % (Auto) 13.4 L (16.0-40.0) % [place] % (Auto) 9.5 (0.0-15.0) % Eos % (Auto) 0.6 (0.0-7.0) % Baso % (Auto) 0.3 (0.0-1.5) % Neut # (Auto) 10.0 H (1.4-5.7) K/uL Lymph # (Auto) 1.8 (0.6-2.4) K/uL [place] # (Auto) 1.2 H (0.0-0.8) K/uL Eos # (Auto) 0.1 (0.0-0.7) K/uL Baso # (Auto) 0.0 (0.0-0.1) K/uL Nucleated RBC % 0.0 /100WBC Nucleated RBCs # 0 K/uL Sodium 140 (136-148) mmol/L Potassium 3.7 (3.5-5.1) mmol/L Chloride 107 (98-107) mmol/L Carbon Dioxide 26.1 (21.0-32.0) mmol/L BUN 13 (7.0-18.0) mg/dL Creatinine 0.9 (0.8-1.3) mg/dL Est Cr Clr Drug Dosing 80.78 mL/min Estimated GFR (MDRD) > 60.0 ml/min Glucose 95 (74-106) mg/dL POC Glucose 98 (60-110) mg/dL Calcium 8.6 (8.5-10.1) mg/dL Vancomycin Trough (5.0-10.0) ug/mL 10/05/18 Range/Units 12:02 WBC (4.0-11.0) K/uL RBC (4.50-5.90) M/uL Hgb (13.0-17.0) g/dL Hct (38.0-50.0) % MCV (80.0-98.0) fL MCH (27.0-32.0) pg MCHC (31.0-37.0) g/dL RDW Std Deviation (28.0-62.0) fl RDW Coeff of Hiro (11.0-15.0) % Plt Count (150-400) K/uL MPV (7.40-12.00) fL Neut % (Auto) (48.0-80.0) % Lymph % (Auto) (16.0-40.0) % [place] % (Auto) (0.0-15.0) % Eos % (Auto) (0.0-7.0) % Baso % (Auto) (0.0-1.5) % Neut # (Auto) (1.4-5.7) K/uL Lymph # (Auto) (0.6-2.4) K/uL [place] # (Auto) (0.0-0.8) K/uL Eos # (Auto) (0.0-0.7) K/uL Baso # (Auto) (0.0-0.1) K/uL Nucleated RBC % /100WBC Nucleated RBCs # K/uL Sodium (136-148) mmol/L Potassium (3.5-5.1) mmol/L Chloride (98-107) mmol/L Carbon Dioxide (21.0-32.0) mmol/L BUN (7.0-18.0) mg/dL Creatinine (0.8-1.3) mg/dL Est Cr Clr Drug Dosing mL/min Estimated GFR (MDRD) ml/min Glucose (74-106) mg/dL POC Glucose 352 H (60-110) mg/dL Calcium (8.5-10.1) mg/dL Vancomycin Trough (5.0-10.0) ug/mL [place] Results Last 24 Hours: Microbiology 10/02/18 20:23 Wound Culture - Final Foot, Right Staphylococcus Aureus 10/02/18 22:45 Aerobic Blood Culture - Preliminary Blood - Venous - Lab Draw NO GROWTH AFTER 2 DAYS Anaerobic Blood Culture - Preliminary NO GROWTH AFTER 2 DAYS 10/02/18 22:45 Aerobic Blood Culture - Preliminary Blood - Venous NO GROWTH AFTER 2 DAYS Anaerobic Blood Culture - Preliminary NO GROWTH AFTER 2 DAYS Med Orders - Current: Current Medications Acetaminophen (Tylenol) 650 mg PO Q4H PRN PRN Reason: Pain (mild 1-3) Last Admin: 10/04/18 21:36 Dose: 650 mg Heparin Sodium (Porcine) (Heparin Sodium) 5,000 units SUBCUT Q12H [facility] Last Admin: 10/05/18 10:25 Dose: 5,000 units Sodium Chloride (Normal Saline) 1,000 mls @ 125 mls/hr IV STAT [facility] Last Admin: 10/05/18 06:43 Dose: 125 mls/hr Piperacillin Sod/Tazobactam (Sod 4.5 gm/ Sodium Chloride) 100 mls @ 100 mls/hr IV Q8H [facility] Last Admin: 10/05/18 09:01 Dose: 100 mls/hr Vancomycin HCl 1.25 gm/ Sodium (Chloride) 250 mls @ 166.667 mls/hr IV Q12H [facility] Last Admin: 10/05/18 10:23 Dose: 166.667 mls/hr Insulin Aspart (Novolog) 0 unit SUBCUT QIDACANDBED [facility]; Protocol Last Admin: 10/05/18 12:29 Dose: 10 units Insulin Glargine (Lantus Solostar) 10 units SUBCUT BEDTIME [facility] Last Admin: 10/04/18 21:24 Dose: 10 units Morphine Sulfate (Morphine) 2 mg IVPUSH Q2H PRN PRN Reason: Pain (severe 7-10) Ondansetron HCl (Zofran) 4 mg IVPUSH Q4H PRN PRN Reason: Nausea Oxycodone HCl (Oxycodone) 5 mg PO Q4H PRN PRN Reason: Pain (moderate 4-6) Silver Sulfadiazine (Silvadene 1% Cream 50 Gm) 1 gm TOP DAILY [facility] Last Admin: 10/05/18 09:20 Dose: 1 applic Vancomycin HCl (Pharmacy To Dose - Vancomycin) 1 dose .XX ASDIRECTED [facility] Discontinued Medications Sodium Chloride (Normal Saline) 1,000 mls @ 999 mls/hr IV STAT ONE Stop: 10/02/18 23:28 Last Admin: 10/02/18 22:30 Dose: 999 mls/hr Ceftriaxone Sodium/Dextrose 1 (gm/ Premix) 50 mls @ 100 mls/hr IV ONETIME ONE Stop: 10/02/18 22:59 Last Admin: 10/02/18 22:37 Dose: 100 mls/hr Vancomycin HCl 1 gm/ Sodium (Chloride) 250 mls @ 166.667 mls/hr IV Q12H [facility] Last Admin: 10/04/18 21:24 Dose: 166.667 mls/hr Vancomycin HCl 1.25 gm/ Sodium (Chloride) 250 mls @ 166.667 mls/hr IV Q12H [facility] Vancomycin HCl 1.25 gm/ Sodium (Chloride) 250 mls @ 166.667 mls/hr IV Q12H [facility] Last Admin: 10/05/18 10:29 Dose: Not Given Insulin Human Regular (Novolin R) 10 unit IVPUSH ONETIME ONE; Protocol Stop: 10/02/18 22:29 Last Admin: 10/02/18 22:35 Dose: 10 unit Insulin Human Regular (Novolin R) 10 unit SUBCUT NOW STA; Protocol Stop: 10/02/18 22:30 Last Admin: 10/02/18 22:38 Dose: 10 units Insulin Human Regular (Novolin R) 5 unit IVPUSH ONETIME ONE; Protocol Stop: 10/02/18 23:41 Last Admin: 10/03/18 00:00 Dose: 5 units Iopamidol (Isovue-370 (76%)) 100 ml IVPUSH ONETIME ONE Stop: 10/03/18 11:27 Last Admin: 10/03/18 11:27 Dose: 100 ml - Exam Peripheral Pulses: 1+: Posterior Tibial (R), Dorsalis Pedis (R) Skin: Warm Wound/Incisions: Drainage, Erythema Improving Physical Findings Comments:: No major changes from yesterday. There is slight buildup of fibrotic tissue that will eventually need debridement either bedside or in office following patient discharge. I noted strike through of clear drainage to outer dressing. Upon removal of kerlix and gauze the right foot is stable with improved color to exposed dermis on dorsal and plantar aspects following yesterday's debridement. The medial right great toe subcutaneous ulcer is unchanged. Consult PN Assessment/Plan (1) Diabetic foot ulcer SNOMED Code(s): 754822207 Code(s): E11.621 - TYPE 2 DIABETES MELLITUS WITH FOOT ULCER; L97.509 - NON- PRESSURE CHRONIC ULCER OTH PRT UNSP FOOT W UNSP SEVERITY Current Visit: Yes Qualifiers: Diabetic foot ulcer location: toe Diabetes mellitus type: type 2 Laterality: right Non-pressure ulcer stage: with fat layer exposed Qualified Code(s): E11.621 - Type 2 diabetes mellitus with foot ulcer; L97.512 - Non-pressure chronic ulcer of other part of right foot with fat layer exposed Problem List Initiated/Reviewed/Updated: Yes Plan: Assessments: Two days status post debridement of right foot ulcer and drainage of bulla formations to right foot with removal of devitalized skin. No sign of active infection. Wound culture taken at admission resulted Staph aureus which should be well controlled with antibiotics. Patient WBC is slightly elevated. Plan: Dressing change by nurse this morning. Silvdadene and xeroform applied earlier today is left in place and new gauze and kerlix roll is applied about right foot. Continue IV antibiotics. Patient's ulcers are not excessively deep, maximum depth is subcutaneous. If blood sugar is brought under control patient could be treated on outpatient basis provided he can be compliant. I will follow and will examine again tomorrow. Continue with daily wound care per orders. I agree with goal of patient being stable for discharge in 1-3 days and could follow patient on outpatient basis after that.
[2018-10-05] MEDS: Insulin Glargine,Human Rec. Analog 100 Units/ML 3 ML Pen SUBCUT SCH (21:34)
[2018-10-05] MEDS: Acetaminophen 325 MG Tab PO PRN (21:48)
[2018-10-06] MEDS: Piperacillin/Tazobactam 4.5 GM in Sodium Chloride 0.9% 100 ML IV SCH ×3 (00:30→16:36)
[2018-10-06] MEDS: Sodium Chloride 0.9% 1,000 ML IV SCH ×2 (01:21→13:30)
[2018-10-06 06:22] LABS: CHLORIDE,CL 108 mmol/L (98-107); SODIUM,NA 142 mmol/L (136-148)
[2018-10-06] MEDS: Insulin Aspart 100 Units/ML 3 ML Pen SUBCUT SCH ×4 (07:39→21:23)
[2018-10-06] MEDS: Silver Sulfadiazine 1% Crm 50 GM Tube TOP SCH (10:38)
[2018-10-06] MEDS: Heparin Sodium 5,000 Units/ML Vial SUBCUT SCH ×2 (10:40→21:28)
--- NOTE | 2018-10-06 12:09 | PCM.PN ---
- General Info Date of Service: 10/06/18 Admission Dx/Problem (Free Text): Admission Diagnosis/Problem Admission Diagnosis/Problem Hyperglycemia, Diabetic foot ulcer R Subjective Update: Doing well today, pain is tolerable. No chest pain or SOB. Foot pain ok. No other concerns, wondering about going home. Functional Status: Reports: Pain Controlled, Tolerating Diet, Ambulating, Urinating - Review of Systems General: Reports: No Symptoms. Denies: Fever HEENT: Reports: No Symptoms Pulmonary: Reports: No Symptoms. Denies: Shortness of Breath Cardiovascular: Reports: No Symptoms. Denies: Chest Pain Gastrointestinal: Reports: No Symptoms. Denies: Abdominal Pain, Nausea, Vomiting Genitourinary: Reports: No Symptoms Musculoskeletal: Reports: No Symptoms Neurological: Reports: No Symptoms Psychiatric: Reports: No Symptoms - Patient Data Vitals - Most Recent: Last Vital Signs Temp 98.2 F 10/06/18 11:32 Pulse 77 10/06/18 11:32 Resp 20 10/06/18 11:32 BP 140/80 10/06/18 11:32 Pulse Ox 98 10/06/18 11:32 Weight - Most Recent: 61.4 kg I&O - Last 24 Hours: Intake & Output 10/05/18 10/06/18 10/06/18 22:59 06:59 14:59 Intake Total 1350 600 Output Total 1500 Balance 1350 -900 Lab Results Last 24 Hours: Laboratory Results - last 24 hr 10/05/18 10/05/18 10/06/18 Range/Units 16:43 21:31 05:19 WBC 10.62 (4.0-11.0) K/uL RBC 3.63 L (4.50-5.90) M/uL Hgb 10.3 L (13.0-17.0) g/dL Hct 31.4 L (38.0-50.0) % MCV 86.5 (80.0-98.0) fL MCH 28.4 (27.0-32.0) pg MCHC 32.8 (31.0-37.0) g/dL RDW Std Deviation 40.3 (28.0-62.0) fl RDW Coeff of Hiro 13 (11.0-15.0) % Plt Count 269 (150-400) K/uL MPV 10.00 (7.40-12.00) fL Neut % (Auto) 68.3 (48.0-80.0) % Lymph % (Auto) 18.8 (16.0-40.0) % [place] % (Auto) 10.9 (0.0-15.0) % Eos % (Auto) 1.5 (0.0-7.0) % Baso % (Auto) 0.5 (0.0-1.5) % Neut # (Auto) 7.3 H (1.4-5.7) K/uL Lymph # (Auto) 2.0 (0.6-2.4) K/uL [place] # (Auto) 1.2 H (0.0-0.8) K/uL Eos # (Auto) 0.2 (0.0-0.7) K/uL Baso # (Auto) 0.1 (0.0-0.1) K/uL Nucleated RBC % 0.0 /100WBC Nucleated RBCs # 0 K/uL Sodium (136-148) mmol/L Potassium (3.5-5.1) mmol/L Chloride (98-107) mmol/L Carbon Dioxide (21.0-32.0) mmol/L BUN (7.0-18.0) mg/dL Creatinine (0.8-1.3) mg/dL Est Cr Clr Drug Dosing mL/min Estimated GFR (MDRD) ml/min Glucose (74-106) mg/dL POC Glucose 269 H 275 H (60-110) mg/dL Calcium (8.5-10.1) mg/dL 10/06/18 10/06/18 10/06/18 Range/Units 05:19 06:27 11:39 WBC (4.0-11.0) K/uL RBC (4.50-5.90) M/uL Hgb (13.0-17.0) g/dL Hct (38.0-50.0) % MCV (80.0-98.0) fL MCH (27.0-32.0) pg MCHC (31.0-37.0) g/dL RDW Std Deviation (28.0-62.0) fl RDW Coeff of Hiro (11.0-15.0) % Plt Count (150-400) K/uL MPV (7.40-12.00) fL Neut % (Auto) (48.0-80.0) % Lymph % (Auto) (16.0-40.0) % [place] % (Auto) (0.0-15.0) % Eos % (Auto) (0.0-7.0) % Baso % (Auto) (0.0-1.5) % Neut # (Auto) (1.4-5.7) K/uL Lymph # (Auto) (0.6-2.4) K/uL [place] # (Auto) (0.0-0.8) K/uL Eos # (Auto) (0.0-0.7) K/uL Baso # (Auto) (0.0-0.1) K/uL Nucleated RBC % /100WBC Nucleated RBCs # K/uL Sodium 142 (136-148) mmol/L Potassium 4.0 (3.5-5.1) mmol/L Chloride 108 H (98-107) mmol/L Carbon Dioxide 26.7 (21.0-32.0) mmol/L BUN 9 (7.0-18.0) mg/dL Creatinine 0.9 (0.8-1.3) mg/dL Est Cr Clr Drug Dosing 80.78 mL/min Estimated GFR (MDRD) > 60.0 ml/min Glucose 180 H (74-106) mg/dL POC Glucose 158 H 160 H (60-110) mg/dL Calcium 8.8 (8.5-10.1) mg/dL [place] Results Last 24 Hours: Microbiology 10/02/18 22:45 Aerobic Blood Culture - Preliminary Blood - Venous - Lab Draw NO GROWTH AFTER 3 DAYS Anaerobic Blood Culture - Preliminary NO GROWTH AFTER 3 DAYS 10/02/18 22:45 Aerobic Blood Culture - Preliminary Blood - Venous NO GROWTH AFTER 3 DAYS Anaerobic Blood Culture - Preliminary NO GROWTH AFTER 3 DAYS Med Orders - Current: Current Medications Acetaminophen (Tylenol) 650 mg PO Q4H PRN PRN Reason: Pain (mild 1-3) Last Admin: 10/05/18 21:48 Dose: 650 mg Heparin Sodium (Porcine) (Heparin Sodium) 5,000 units SUBCUT Q12H [facility] Last Admin: 10/06/18 10:40 Dose: 5,000 units Sodium Chloride (Normal Saline) 1,000 mls @ 125 mls/hr IV STAT [facility] Last Admin: 10/06/18 01:21 Dose: 125 mls/hr Piperacillin Sod/Tazobactam (Sod 4.5 gm/ Sodium Chloride) 100 mls @ 100 mls/hr IV Q8H [facility] Last Admin: 10/06/18 09:30 Dose: 100 mls/hr Vancomycin HCl 1.25 gm/ Sodium (Chloride) 250 mls @ 166.667 mls/hr IV Q12H [facility] Last Admin: 10/06/18 11:02 Dose: 166.667 mls/hr Insulin Aspart (Novolog) 0 unit SUBCUT QIDACANDBED [facility]; Protocol Last Admin: 10/06/18 07:39 Dose: 2 units Insulin Glargine (Lantus Solostar) 10 units SUBCUT BEDTIME [facility] Last Admin: 10/05/18 21:34 Dose: 10 units Morphine Sulfate (Morphine) 2 mg IVPUSH Q2H PRN PRN Reason: Pain (severe 7-10) Ondansetron HCl (Zofran) 4 mg IVPUSH Q4H PRN PRN Reason: Nausea Oxycodone HCl (Oxycodone) 5 mg PO Q4H PRN PRN Reason: Pain (moderate 4-6) Silver Sulfadiazine (Silvadene 1% Cream 50 Gm) 1 gm TOP DAILY [facility] Last Admin: 10/06/18 10:38 Dose: 1 applic Vancomycin HCl (Pharmacy To Dose - Vancomycin) 1 dose .XX ASDIRECTED [facility] Discontinued Medications Sodium Chloride (Normal Saline) 1,000 mls @ 999 mls/hr IV STAT ONE Stop: 10/02/18 23:28 Last Admin: 10/02/18 22:30 Dose: 999 mls/hr Ceftriaxone Sodium/Dextrose 1 (gm/ Premix) 50 mls @ 100 mls/hr IV ONETIME ONE Stop: 10/02/18 22:59 Last Admin: 10/02/18 22:37 Dose: 100 mls/hr Vancomycin HCl 1 gm/ Sodium (Chloride) 250 mls @ 166.667 mls/hr IV Q12H [facility] Last Admin: 10/04/18 21:24 Dose: 166.667 mls/hr Vancomycin HCl 1.25 gm/ Sodium (Chloride) 250 mls @ 166.667 mls/hr IV Q12H [facility] Vancomycin HCl 1.25 gm/ Sodium (Chloride) 250 mls @ 166.667 mls/hr IV Q12H [facility] Last Admin: 10/05/18 10:29 Dose: Not Given Insulin Human Regular (Novolin R) 10 unit IVPUSH ONETIME ONE; Protocol Stop: 10/02/18 22:29 Last Admin: 10/02/18 22:35 Dose: 10 unit Insulin Human Regular (Novolin R) 10 unit SUBCUT NOW STA; Protocol Stop: 10/02/18 22:30 Last Admin: 10/02/18 22:38 Dose: 10 units Insulin Human Regular (Novolin R) 5 unit IVPUSH ONETIME ONE; Protocol Stop: 10/02/18 23:41 Last Admin: 10/03/18 00:00 Dose: 5 units Iopamidol (Isovue-370 (76%)) 100 ml IVPUSH ONETIME ONE Stop: 10/03/18 11:27 Last Admin: 10/03/18 11:27 Dose: 100 ml - Exam General: Alert, Oriented, Cooperative Neck: Supple Lungs: Clear to Auscultation, Normal Respiratory Effort Cardiovascular: Regular Rate, Regular Rhythm GI/Abdominal Exam: Normal Bowel Sounds, Soft, Non-Tender Extremities: Normal Range of Motion, Normal Capillary Refill Wound/Incisions: Dressing Dry and Intact (recently changed by nursing. ), Erythema Improving Neurological: No New Focal Deficit Psy/Mental Status: Alert, Normal Affect, Normal Mood - Problem List & Annotations (1) Diabetic foot ulcer SNOMED Code(s): 201794737 Code(s): E11.621 - TYPE 2 DIABETES MELLITUS WITH FOOT ULCER; L97.509 - NON- PRESSURE CHRONIC ULCER OTH PRT UNSP FOOT W UNSP SEVERITY Status: Acute Current Visit: Yes Qualifiers: Diabetic foot ulcer location: toe Diabetes mellitus type: type 2 Laterality: right Non-pressure ulcer stage: with fat layer exposed Qualified Code(s): E11.621 - Type 2 diabetes mellitus with foot ulcer; L97.512 - Non-pressure chronic ulcer of other part of right foot with fat layer exposed (2) Hyperglycemia SNOMED Code(s): 57232940 Code(s): R73.9 - HYPERGLYCEMIA, UNSPECIFIED Status: Acute Current Visit: Yes (3) Noncompliance with medication regimen SNOMED Code(s): 438413527 Code(s): Z91.14 - PATIENT'S OTHER NONCOMPLIANCE WITH MEDICATION REGIMEN Status: Acute Current Visit: Yes (4) DM type 2 (diabetes mellitus, type 2) SNOMED Code(s): 19806532 Code(s): E11.9 - TYPE 2 DIABETES MELLITUS WITHOUT COMPLICATIONS Status: Chronic Current Visit: Yes Qualifiers: Diabetes mellitus jail insulin use: without jail use Diabetes mellitus complication status: with skin complications Diabetes mellitus complication detail: with foot ulcer Qualified Code(s): E11.621 - Type 2 diabetes mellitus with foot ulcer; L97.509 - Non-pressure chronic ulcer of other part of unspecified foot with unspecified severity - Problem List Review Problem List Initiated/Reviewed/Updated: Yes - Plan Plan:: This 48 year old male admitted with R diabetic foot ulcer and hyperglycemia 1. DM Foot Ulcer: Leukocytosis improved. Continue Vancomycin and Zosyn. Dr. Friend performed debridement. Will speak with Dr Friend regarding plans. Culture MSSA. 2. DM Type 2: Continue Lantus and Novolog TIDAC VTE prophylaxis: Heparin Dispo: 1-3 days pending improvement.
[2018-10-06] MEDS: Insulin Glargine,Human Rec. Analog 100 Units/ML 3 ML Pen SUBCUT SCH (21:24)
[2018-10-07] MEDS: Acetaminophen 325 MG Tab PO PRN (01:23)
[2018-10-07] MEDS: Piperacillin/Tazobactam 4.5 GM in Sodium Chloride 0.9% 100 ML IV SCH ×3 (01:23→17:49)
[2018-10-07 06:22] LABS: CHLORIDE,CL 106 mmol/L (98-107); SODIUM,NA 144 mmol/L (136-148)
[2018-10-07] MEDS: Insulin Aspart 100 Units/ML 3 ML Pen SUBCUT SCH ×3 (08:07→17:48)
[2018-10-07] MEDS: Heparin Sodium 5,000 Units/ML Vial SUBCUT SCH (10:08)
--- NOTE | 2018-10-07 12:42 | PCM.DCSUM1 ---
Discharge Summary - Hospital Course Brief History: This 48 year old male with PMH of DM Type 2 but is non-complaint with medication presented to the ED with concerns of R foot blisters. He reports this initially started on lateral aspect of R great toe 1 month ago. He felt his work shoes may not have been fitting well. He has monitored it but it has continued to worsen. He reports he has not been taking his Metformin for almost 3 months. He said he moved here from [place] and he didn't bring any of it with him. He reports mild fever and chills at home. No headache or neck pain. No chest pain or SOB. No abdominal pain, no black or bloody BMs and no urinary concerns. He reports smoking 1-4 cigarettes daily for the last 3 months. No alcohol use and no recreational drug use. In the ED leukocytosis noted at 12, 080, Hgb 11.0, NA 133. BS 731, BUN 26 and Cr 1.4. VS Stable. He was given insulin for BS which came down to 200s. He was given Rocephin for DM foot ulcer. Xray of foot obtained, which revealed soft tissue edema nd punctate radioopaque foreign bodies involving the plantar soft tissues adjacent to MTP joints. He was admitted for Hyperglycemia and R DM foot ulcer. No PCP. Diagnosis: Stroke: No - Discharge Data Discharge Date: 10/07/18 Discharge Disposition: Home, Self-Care 01 Condition: Good - Discharge Diagnosis/Problem(s) (1) Diabetic foot ulcer SNOMED Code(s): 582200617 ICD Code: E11.621 - TYPE 2 DIABETES MELLITUS WITH FOOT ULCER; L97.509 - NON- PRESSURE CHRONIC ULCER OTH PRT UNSP FOOT W UNSP SEVERITY Status: Acute Current Visit: Yes Qualifiers: Diabetic foot ulcer location: toe Diabetes mellitus type: type 2 Laterality: right Non-pressure ulcer stage: with fat layer exposed Qualified Code(s): E11.621 - Type 2 diabetes mellitus with foot ulcer; L97.512 - Non-pressure chronic ulcer of other part of right foot with fat layer exposed (2) Hyperglycemia SNOMED Code(s): 84694869 ICD Code: R73.9 - HYPERGLYCEMIA, UNSPECIFIED Status: Acute Current Visit : Yes (3) Noncompliance with medication regimen SNOMED Code(s): 183247985 ICD Code: Z91.14 - PATIENT'S OTHER NONCOMPLIANCE WITH MEDICATION REGIMEN Status: Acute Current Visit: Yes (4) DM type 2 (diabetes mellitus, type 2) SNOMED Code(s): 03884390 ICD Code: E11.9 - TYPE 2 DIABETES MELLITUS WITHOUT COMPLICATIONS Status: Chronic Current Visit: Yes 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 Diabetes mellitus complication status: with skin complications Diabetes mellitus complication detail: with foot ulcer Qualified Code(s): E11.621 - Type 2 diabetes mellitus with foot ulcer; L97.509 - Non-pressure chronic ulcer of other part of unspecified foot with unspecified severity - Patient Summary/Data Consults: Consultations 10/03/18 10:02 Consult to Diabetic Nurse Specialist [CONS] Routine 10/03/18 10:05 Consult to Physician [CONS] Routine - Patient Instructions Diet: Diabetic Diet Activity: As Tolerated, Non Weight Bearing (R foot) - Discharge Plan *PRESCRIPTION DRUG MONITORING PROGRAM REVIEWED*: Not Applicable *COPY OF PRESCRIPTION DRUG MONITORING REPORT IN PATIENT CLEMENCIA: Not Applicable Prescriptions/Med Rec: Amoxicillin/Clavulanate K [Augmentin 875-125 MG] 1 tab PO BID #14 tablet Blood Sugar Diagnostic [Test Strips] 1 each MC QID #1 box Insulin Glarg,Human.Rec.Analog [Lantus Solostar] 12 units SUBCUT BEDTIME #1 box Insulin Lispro [HumaLOG] See Protocol SQ TIDAC #1 box Lancets 1 each MC QID #1 box metFORMIN HCl [Metformin HCl] 1,000 mg PO BID #60 tablet Pen Needle, Diabetic [Pen Needle] 1 each MC QID #1 box Home Medications: Home Meds Acetaminophen [Tylenol] 650 mg PO Q4H PRN tablet 10/07/18 [Rx] Amoxicillin/Clavulanate K [Augmentin 875-125 MG] 1 tab PO BID #14 tablet [Rx] Blood Sugar Diagnostic [Test Strips] 1 each MC QID #1 box 10/07/18 [Rx] Insulin Glarg,Human.Rec.Analog [Lantus Solostar] 12 units SUBCUT BEDTIME #1 box 10/07/18 [Rx] Insulin Lispro [HumaLOG] See Protocol SQ TIDAC #1 box 10/07/18 [Rx] Lancets 1 each MC QID #1 box 10/07/18 [Rx] Pen Needle, Diabetic [Pen Needle] 1 each QID #1 box 10/07/18 [Rx] Silver Sulfadiazine [Silvadene 1% Cream 50 GM] 1 gm TOP DAILY tube 10/07/18 [Rx ] metFORMIN HCl [Metformin HCl] 1,000 mg PO BID #60 tablet 10/07/18 [Rx] Oxygen Therapy Mode: Room Air Patient Handouts: Hyperglycemia, [id number], Metformin tablets, Insulin Glargine injection, Insulin Lispro injection, Amoxicillin; Clavulanic Acid chewable tablets Referrals: [facility] [Outside] Asim Garnett MD [Resident] - 10/13/18 10:00 am Danyel Friend DPM [Physician] - 10/08/18 12:30 pm - Discharge Summary/Plan Comment DC Time >30 min.: No Discharge Summary/Plan Comment: Admitting Diagnoses: Diabetic foot ulcer Non complaint Dm Type 2 Discharge Diagnoses: Diabetic foot ulcer DM type 2 Sourav was admitted secondary to R foot ulcers. Dr Friend consulted for debridement, please see his consultation notes. He was started on insulin with meals and Lantus at bedtime to control BS. A1c noted to be 14.8. he was treated with vancomycin and Zosyn. Culture obtained of Foot wound, which returned as MSSA. BC negative. DM educator visited with patient and educated on diabetes as well as insulin usage. Today he is feeling good and eager to be discharged homed. BS controlled, fasting 160s. Will increase Lantus to 12 units and continue Humalog SSI at home. Will also restart Metformin as well. He will follow with Dr Friend as outpatient for his DM ulcer. He will arrange dressing changes at home. He will see Dr Friend tomorrow for dressing change. All questions and concerns were answered via [employer] translation tool. He will take Augmentin BID for 1 more week and continue follow up with Dr Friend. He is to return to ED or clinic if concerns should arise. - General Info Date of Service: 10/07/18 Admission Dx/Problem (Free Text: Admission Diagnosis/Problem Admission Diagnosis/Problem Hyperglycemia, Diabetic foot ulcer R Subjective Update: Feeling good today, no concerns. Asking when he can go home. No pain to R foot. No chest pain or dyspnea. Feeling good about insulin use. Functional Status: Reports: Pain Controlled, Tolerating Diet, Ambulating, Urinating - Review of Systems General: Reports: No Symptoms. Denies: Fever, Weakness, Fatigue HEENT: Reports: No Symptoms Pulmonary: Reports: No Symptoms. Denies: Shortness of Breath Cardiovascular: Reports: No Symptoms. Denies: Chest Pain Gastrointestinal: Reports: No Symptoms. Denies: Abdominal Pain, Nausea, Vomiting Genitourinary: Reports: No Symptoms. Denies: Dysuria, Frequency Musculoskeletal: Reports: No Symptoms. Denies: Foot Pain Skin: Reports: No Symptoms Neurological: Reports: No Symptoms Psychiatric: Reports: No Symptoms - Patient Data Vitals - Most Recent: Last Vital Signs Temp 98.3 F 10/07/18 08:00 Pulse 79 10/07/18 08:00 Resp 18 10/07/18 08:00 BP 91/59 L 10/07/18 08:00 Pulse Ox 97 10/07/18 08:00 Weight - Most Recent: 61.4 kg I&O - Last 24 hours: Intake & Output 10/06/18 10/07/18 10/07/18 22:59 06:59 14:59 Intake Total 1810 1600 350 Output Total 600 950 Balance 1210 650 350 Lab Results - Last 24 hrs: Laboratory Results - last 24 hr 10/06/18 10/06/18 10/06/18 Range/Units 17:03 19:34 21:10 WBC (4.0-11.0) K/uL RBC (4.50-5.90) M/uL Hgb (13.0-17.0) g/dL Hct (38.0-50.0) % MCV (80.0-98.0) fL MCH (27.0-32.0) pg MCHC (31.0-37.0) g/dL RDW Std Deviation (28.0-62.0) fl RDW Coeff of Hiro (11.0-15.0) % Plt Count (150-400) K/uL MPV (7.40-12.00) fL Neut % (Auto) (48.0-80.0) % Lymph % (Auto) (16.0-40.0) % Robeson % (Auto) (0.0-15.0) % Eos % (Auto) (0.0-7.0) % Baso % (Auto) (0.0-1.5) % Neut # (Auto) (1.4-5.7) K/uL Lymph # (Auto) (0.6-2.4) K/uL Robeson # (Auto) (0.0-0.8) K/uL Eos # (Auto) (0.0-0.7) K/uL Baso # (Auto) (0.0-0.1) K/uL Nucleated RBC % /100WBC Nucleated RBCs # K/uL Sodium (136-148) mmol/L Potassium (3.5-5.1) mmol/L Chloride (98-107) mmol/L Carbon Dioxide (21.0-32.0) mmol/L BUN (7.0-18.0) mg/dL Creatinine (0.8-1.3) mg/dL Est Cr Clr Drug Dosing mL/min Estimated GFR (MDRD) ml/min Glucose (74-106) mg/dL POC Glucose 262 H 483 H (60-110) mg/dL Calcium (8.5-10.1) mg/dL Vancomycin Trough 12.0 H (5.0-10.0) ug/mL 10/07/18 10/07/18 10/07/18 Range/Units 05:35 05:35 06:09 WBC 10.53 (4.0-11.0) K/uL RBC 3.70 L (4.50-5.90) M/uL Hgb 10.3 L (13.0-17.0) g/dL Hct 32.1 L (38.0-50.0) % MCV 86.8 (80.0-98.0) fL MCH 27.8 (27.0-32.0) pg MCHC 32.1 (31.0-37.0) g/dL RDW Std Deviation 40.9 (28.0-62.0) fl RDW Coeff of Hiro 13 (11.0-15.0) % Plt Count 306 (150-400) K/uL MPV 9.90 (7.40-12.00) fL Neut % (Auto) 67.4 (48.0-80.0) % Lymph % (Auto) 20.2 (16.0-40.0) % Robeson % (Auto) 10.6 (0.0-15.0) % Eos % (Auto) 1.4 (0.0-7.0) % Baso % (Auto) 0.4 (0.0-1.5) % Neut # (Auto) 7.1 H (1.4-5.7) K/uL Lymph # (Auto) 2.1 (0.6-2.4) K/uL Robeson # (Auto) 1.1 H (0.0-0.8) K/uL Eos # (Auto) 0.2 (0.0-0.7) K/uL Baso # (Auto) 0.0 (0.0-0.1) K/uL Nucleated RBC % 0.0 /100WBC Nucleated RBCs # 0 K/uL Sodium 144 (136-148) mmol/L Potassium 4.4 (3.5-5.1) mmol/L Chloride 106 (98-107) mmol/L Carbon Dioxide 30.7 (21.0-32.0) mmol/L BUN 10 (7.0-18.0) mg/dL Creatinine 1.0 (0.8-1.3) mg/dL Est Cr Clr Drug Dosing 72.71 mL/min Estimated GFR (MDRD) > 60.0 ml/min Glucose 138 H (74-106) mg/dL POC Glucose 137 H (60-110) mg/dL Calcium 9.1 (8.5-10.1) mg/dL Vancomycin Trough (5.0-10.0) ug/mL 10/07/18 Range/Units 11:47 WBC (4.0-11.0) K/uL RBC (4.50-5.90) M/uL Hgb (13.0-17.0) g/dL Hct (38.0-50.0) % MCV (80.0-98.0) fL MCH (27.0-32.0) pg MCHC (31.0-37.0) g/dL RDW Std Deviation (28.0-62.0) fl RDW Coeff of Hiro (11.0-15.0) % Plt Count (150-400) K/uL MPV (7.40-12.00) fL Neut % (Auto) (48.0-80.0) % Lymph % (Auto) (16.0-40.0) % Robeson % (Auto) (0.0-15.0) % Eos % (Auto) (0.0-7.0) % Baso % (Auto) (0.0-1.5) % Neut # (Auto) (1.4-5.7) K/uL Lymph # (Auto) (0.6-2.4) K/uL Robeson # (Auto) (0.0-0.8) K/uL Eos # (Auto) (0.0-0.7) K/uL Baso # (Auto) (0.0-0.1) K/uL Nucleated RBC % /100WBC Nucleated RBCs # K/uL Sodium (136-148) mmol/L Potassium (3.5-5.1) mmol/L Chloride (98-107) mmol/L Carbon Dioxide (21.0-32.0) mmol/L BUN (7.0-18.0) mg/dL Creatinine (0.8-1.3) mg/dL Est Cr Clr Drug Dosing mL/min Estimated GFR (MDRD) ml/min Glucose (74-106) mg/dL POC Glucose 338 H (60-110) mg/dL Calcium (8.5-10.1) mg/dL Vancomycin Trough (5.0-10.0) ug/mL RODDY Results - Last 24 hrs: Microbiology 10/02/18 22:45 Aerobic Blood Culture - Preliminary Blood - Venous - Lab Draw NO GROWTH AFTER 4 DAYS Anaerobic Blood Culture - Preliminary NO GROWTH AFTER 4 DAYS 10/02/18 22:45 Aerobic Blood Culture - Preliminary Blood - Venous NO GROWTH AFTER 4 DAYS Anaerobic Blood Culture - Preliminary NO GROWTH AFTER 4 DAYS Med Orders - Current: Current Medications Acetaminophen (Tylenol) 650 mg PO Q4H PRN PRN Reason: Pain (mild 1-3) Last Admin: 10/07/18 01:23 Dose: 650 mg Heparin Sodium (Porcine) (Heparin Sodium) 5,000 units SUBCUT Q12H [facility] Last Admin: 10/07/18 10:08 Dose: 5,000 units Piperacillin Sod/Tazobactam (Sod 4.5 gm/ Sodium Chloride) 100 mls @ 100 mls/hr IV Q8H [facility] Last Admin: 10/07/18 08:39 Dose: 100 mls/hr Vancomycin HCl 1.25 gm/ Sodium (Chloride) 250 mls @ 166.667 mls/hr IV Q12H [facility] Last Admin: 10/07/18 10:08 Dose: 166.667 mls/hr Insulin Aspart (Novolog) 0 unit SUBCUT QIDACANDBED [facility]; Protocol Last Admin: 10/07/18 12:32 Dose: 8 units Insulin Glargine (Lantus Solostar) 10 units SUBCUT BEDTIME [facility] Last Admin: 10/06/18 21:24 Dose: 10 units Morphine Sulfate (Morphine) 2 mg IVPUSH Q2H PRN PRN Reason: Pain (severe 7-10) Ondansetron HCl (Zofran) 4 mg IVPUSH Q4H PRN PRN Reason: Nausea Oxycodone HCl (Oxycodone) 5 mg PO Q4H PRN PRN Reason: Pain (moderate 4-6) Silver Sulfadiazine (Silvadene 1% Cream 50 Gm) 1 gm TOP DAILY [facility] Last Admin: 10/06/18 10:38 Dose: 1 applic Vancomycin HCl (Pharmacy To Dose - Vancomycin) 1 dose .XX ASDIRECTED [facility] Discontinued Medications Sodium Chloride (Normal Saline) 1,000 mls @ 999 mls/hr IV STAT ONE Stop: 10/02/18 23:28 Last Admin: 10/02/18 22:30 Dose: 999 mls/hr Ceftriaxone Sodium/Dextrose 1 (gm/ Premix) 50 mls @ 100 mls/hr IV ONETIME ONE Stop: 10/02/18 22:59 Last Admin: 10/02/18 22:37 Dose: 100 mls/hr Sodium Chloride (Normal Saline) 1,000 mls @ 125 mls/hr IV STAT [facility] Last Admin: 10/06/18 13:30 Dose: 125 mls/hr Vancomycin HCl 1 gm/ Sodium (Chloride) 250 mls @ 166.667 mls/hr IV Q12H [facility] Last Admin: 10/04/18 21:24 Dose: 166.667 mls/hr Vancomycin HCl 1.25 gm/ Sodium (Chloride) 250 mls @ 166.667 mls/hr IV Q12H [facility] Vancomycin HCl 1.25 gm/ Sodium (Chloride) 250 mls @ 166.667 mls/hr IV Q12H [facility] Last Admin: 10/05/18 10:29 Dose: Not Given Insulin Human Regular (Novolin R) 10 unit IVPUSH ONETIME ONE; Protocol Stop: 10/02/18 22:29 Last Admin: 10/02/18 22:35 Dose: 10 unit Insulin Human Regular (Novolin R) 10 unit SUBCUT NOW STA; Protocol Stop: 10/02/18 22:30 Last Admin: 10/02/18 22:38 Dose: 10 units Insulin Human Regular (Novolin R) 5 unit IVPUSH ONETIME ONE; Protocol Stop: 10/02/18 23:41 Last Admin: 10/03/18 00:00 Dose: 5 units Iopamidol (Isovue-370 (76%)) 100 ml IVPUSH ONETIME ONE Stop: 10/03/18 11:27 Last Admin: 10/03/18 11:27 Dose: 100 ml - Exam General: Reports: Alert, Oriented, Cooperative, No Acute Distress Lungs: Reports: Clear to Auscultation, Normal Respiratory Effort Cardiovascular: Reports: Regular Rate, Regular Rhythm GI/Abdominal Exam: Normal Bowel Sounds, Soft, Non-Tender, No Distention Back Exam: Reports: Normal Inspection, Full Range of Motion Extremities: Normal Inspection, Normal Range of Motion, Non-Tender, No Pedal Edema Wound/Incisions: Reports: Drainage (serous fluid noted to R foot dressing, Dr Friend to change today. ). Denies: Erythema Neurological: Reports: No New Focal Deficit Psy/Mental Status: Reports: Alert, Normal Affect, Normal Mood
[2018-10-07] MEDS: Silver Sulfadiazine 1% Crm 50 GM Tube TOP SCH (14:06)
--- NOTE | 2018-10-07 17:48 | PCM.CONSN ---
- General Info Date of Service: 10/07/18 (patient seen at noon) Admission Dx/Problem (Free Text): Admission Diagnosis/Problem Admission Diagnosis/Problem Hyperglycemia, Diabetic foot ulcer R Subjective Update: Feeling good today, no concerns. Asking when he can go home. No pain to R foot. No chest pain or dyspnea. Feeling good about insulin use. - Patient Data Vitals - Most Recent: Last Vital Signs Temp 37.6 C 10/07/18 16:00 Pulse 76 10/07/18 16:00 Resp 18 10/07/18 16:00 BP 110/64 10/07/18 16:00 Pulse Ox 97 10/07/18 16:00 Weight - Most Recent: 61.4 kg I&O - Last 24 Hours: Intake & Output 10/07/18 10/07/18 10/07/18 06:59 14:59 22:59 Intake Total 1600 1130 Output Total 950 900 Balance 650 230 Lab Results Last 24 Hours: Laboratory Results - last 24 hr 10/06/18 10/06/18 10/07/18 Range/Units 19:34 21:10 05:35 WBC 10.53 (4.0-11.0) K/uL RBC 3.70 L (4.50-5.90) M/uL Hgb 10.3 L (13.0-17.0) g/dL Hct 32.1 L (38.0-50.0) % MCV 86.8 (80.0-98.0) fL MCH 27.8 (27.0-32.0) pg MCHC 32.1 (31.0-37.0) g/dL RDW Std Deviation 40.9 (28.0-62.0) fl RDW Coeff of Hiro 13 (11.0-15.0) % Plt Count 306 (150-400) K/uL MPV 9.90 (7.40-12.00) fL Neut % (Auto) 67.4 (48.0-80.0) % Lymph % (Auto) 20.2 (16.0-40.0) % Moody % (Auto) 10.6 (0.0-15.0) % Eos % (Auto) 1.4 (0.0-7.0) % Baso % (Auto) 0.4 (0.0-1.5) % Neut # (Auto) 7.1 H (1.4-5.7) K/uL Lymph # (Auto) 2.1 (0.6-2.4) K/uL Moody # (Auto) 1.1 H (0.0-0.8) K/uL Eos # (Auto) 0.2 (0.0-0.7) K/uL Baso # (Auto) 0.0 (0.0-0.1) K/uL Nucleated RBC % 0.0 /100WBC Nucleated RBCs # 0 K/uL Sodium (136-148) mmol/L Potassium (3.5-5.1) mmol/L Chloride (98-107) mmol/L Carbon Dioxide (21.0-32.0) mmol/L BUN (7.0-18.0) mg/dL Creatinine (0.8-1.3) mg/dL Est Cr Clr Drug Dosing mL/min Estimated GFR (MDRD) ml/min Glucose (74-106) mg/dL POC Glucose 483 H (60-110) mg/dL Calcium (8.5-10.1) mg/dL Vancomycin Trough 12.0 H (5.0-10.0) ug/mL 10/07/18 10/07/18 10/07/18 Range/Units 05:35 06:09 11:47 WBC (4.0-11.0) K/uL RBC (4.50-5.90) M/uL Hgb (13.0-17.0) g/dL Hct (38.0-50.0) % MCV (80.0-98.0) fL MCH (27.0-32.0) pg MCHC (31.0-37.0) g/dL RDW Std Deviation (28.0-62.0) fl RDW Coeff of Hiro (11.0-15.0) % Plt Count (150-400) K/uL MPV (7.40-12.00) fL Neut % (Auto) (48.0-80.0) % Lymph % (Auto) (16.0-40.0) % Moody % (Auto) (0.0-15.0) % Eos % (Auto) (0.0-7.0) % Baso % (Auto) (0.0-1.5) % Neut # (Auto) (1.4-5.7) K/uL Lymph # (Auto) (0.6-2.4) K/uL Moody # (Auto) (0.0-0.8) K/uL Eos # (Auto) (0.0-0.7) K/uL Baso # (Auto) (0.0-0.1) K/uL Nucleated RBC % /100WBC Nucleated RBCs # K/uL Sodium 144 (136-148) mmol/L Potassium 4.4 (3.5-5.1) mmol/L Chloride 106 (98-107) mmol/L Carbon Dioxide 30.7 (21.0-32.0) mmol/L BUN 10 (7.0-18.0) mg/dL Creatinine 1.0 (0.8-1.3) mg/dL Est Cr Clr Drug Dosing 72.71 mL/min Estimated GFR (MDRD) > 60.0 ml/min Glucose 138 H (74-106) mg/dL POC Glucose 137 H 338 H (60-110) mg/dL Calcium 9.1 (8.5-10.1) mg/dL Vancomycin Trough (5.0-10.0) ug/mL 10/07/18 Range/Units 17:19 WBC (4.0-11.0) K/uL RBC (4.50-5.90) M/uL Hgb (13.0-17.0) g/dL Hct (38.0-50.0) % MCV (80.0-98.0) fL MCH (27.0-32.0) pg MCHC (31.0-37.0) g/dL RDW Std Deviation (28.0-62.0) fl RDW Coeff of Hiro (11.0-15.0) % Plt Count (150-400) K/uL MPV (7.40-12.00) fL Neut % (Auto) (48.0-80.0) % Lymph % (Auto) (16.0-40.0) % Moody % (Auto) (0.0-15.0) % Eos % (Auto) (0.0-7.0) % Baso % (Auto) (0.0-1.5) % Neut # (Auto) (1.4-5.7) K/uL Lymph # (Auto) (0.6-2.4) K/uL Moody # (Auto) (0.0-0.8) K/uL Eos # (Auto) (0.0-0.7) K/uL Baso # (Auto) (0.0-0.1) K/uL Nucleated RBC % /100WBC Nucleated RBCs # K/uL Sodium (136-148) mmol/L Potassium (3.5-5.1) mmol/L Chloride (98-107) mmol/L Carbon Dioxide (21.0-32.0) mmol/L BUN (7.0-18.0) mg/dL Creatinine (0.8-1.3) mg/dL Est Cr Clr Drug Dosing mL/min Estimated GFR (MDRD) ml/min Glucose (74-106) mg/dL POC Glucose 204 H (60-110) mg/dL Calcium (8.5-10.1) mg/dL Vancomycin Trough (5.0-10.0) ug/mL [facility] Results Last 24 Hours: Microbiology 10/02/18 22:45 Aerobic Blood Culture - Preliminary Blood - Venous - Lab Draw NO GROWTH AFTER 4 DAYS Anaerobic Blood Culture - Preliminary NO GROWTH AFTER 4 DAYS 10/02/18 22:45 Aerobic Blood Culture - Preliminary Blood - Venous NO GROWTH AFTER 4 DAYS Anaerobic Blood Culture - Preliminary NO GROWTH AFTER 4 DAYS Med Orders - Current: Current Medications Acetaminophen (Tylenol) 650 mg PO Q4H PRN PRN Reason: Pain (mild 1-3) Last Admin: 10/07/18 01:23 Dose: 650 mg Heparin Sodium (Porcine) (Heparin Sodium) 5,000 units SUBCUT Q12H [facility] Last Admin: 10/07/18 10:08 Dose: 5,000 units Piperacillin Sod/Tazobactam (Sod 4.5 gm/ Sodium Chloride) 100 mls @ 100 mls/hr IV Q8H [facility] Last Admin: 10/07/18 08:39 Dose: 100 mls/hr Vancomycin HCl 1.25 gm/ Sodium (Chloride) 250 mls @ 166.667 mls/hr IV Q12H [facility] Last Admin: 10/07/18 10:08 Dose: 166.667 mls/hr Insulin Aspart (Novolog) 0 unit SUBCUT QIDACANDBED [facility]; Protocol Last Admin: 10/07/18 12:32 Dose: 8 units Insulin Glargine (Lantus Solostar) 10 units SUBCUT BEDTIME [facility] Last Admin: 10/06/18 21:24 Dose: 10 units Morphine Sulfate (Morphine) 2 mg IVPUSH Q2H PRN PRN Reason: Pain (severe 7-10) Ondansetron HCl (Zofran) 4 mg IVPUSH Q4H PRN PRN Reason: Nausea Oxycodone HCl (Oxycodone) 5 mg PO Q4H PRN PRN Reason: Pain (moderate 4-6) Silver Sulfadiazine (Silvadene 1% Cream 50 Gm) 1 gm TOP DAILY [facility] Last Admin: 10/07/18 14:06 Dose: 1 applic Vancomycin HCl (Pharmacy To Dose - Vancomycin) 1 dose .XX ASDIRECTED [facility] Discontinued Medications Sodium Chloride (Normal Saline) 1,000 mls @ 999 mls/hr IV STAT ONE Stop: 10/02/18 23:28 Last Admin: 10/02/18 22:30 Dose: 999 mls/hr Ceftriaxone Sodium/Dextrose 1 (gm/ Premix) 50 mls @ 100 mls/hr IV ONETIME ONE Stop: 10/02/18 22:59 Last Admin: 10/02/18 22:37 Dose: 100 mls/hr Sodium Chloride (Normal Saline) 1,000 mls @ 125 mls/hr IV STAT [facility] Last Admin: 10/06/18 13:30 Dose: 125 mls/hr Vancomycin HCl 1 gm/ Sodium (Chloride) 250 mls @ 166.667 mls/hr IV Q12H [facility] Last Admin: 10/04/18 21:24 Dose: 166.667 mls/hr Vancomycin HCl 1.25 gm/ Sodium (Chloride) 250 mls @ 166.667 mls/hr IV Q12H [facility] Vancomycin HCl 1.25 gm/ Sodium (Chloride) 250 mls @ 166.667 mls/hr IV Q12H [facility] Last Admin: 10/05/18 10:29 Dose: Not Given Insulin Human Regular (Novolin R) 10 unit IVPUSH ONETIME ONE; Protocol Stop: 10/02/18 22:29 Last Admin: 10/02/18 22:35 Dose: 10 unit Insulin Human Regular (Novolin R) 10 unit SUBCUT NOW STA; Protocol Stop: 10/02/18 22:30 Last Admin: 10/02/18 22:38 Dose: 10 units Insulin Human Regular (Novolin R) 5 unit IVPUSH ONETIME ONE; Protocol Stop: 10/02/18 23:41 Last Admin: 10/03/18 00:00 Dose: 5 units Iopamidol (Isovue-370 (76%)) 100 ml IVPUSH ONETIME ONE Stop: 10/03/18 11:27 Last Admin: 10/03/18 11:27 Dose: 100 ml - Exam Peripheral Pulses: 1+: Posterior Tibial (R), Dorsalis Pedis (R) Skin: Warm Wound/Incisions: Drainage, Erythema Improving, Other (further skin slough noted) Consult PN Assessment/Plan (1) Diabetic foot ulcer SNOMED Code(s): 121300241 Code(s): E11.621 - TYPE 2 DIABETES MELLITUS WITH FOOT ULCER; L97.509 - NON- PRESSURE CHRONIC ULCER OTH PRT UNSP FOOT W UNSP SEVERITY Current Visit: Yes Qualifiers: Diabetic foot ulcer location: toe Diabetes mellitus type: type 2 Laterality: right Non-pressure ulcer stage: with fat layer exposed Qualified Code(s): E11.621 - Type 2 diabetes mellitus with foot ulcer; L97.512 - Non-pressure chronic ulcer of other part of right foot with fat layer exposed Assessment:: continued improvement to right foot ulcer with addtional skin loss / slough Patient OK for discharge if plan in place to consistently take his diabetic medications and antibiotic. Four days status post debridement of right foot ulcer and drainage of bulla formations to right foot with removal of devitalized skin. No sign of active infection. Wound culture taken at admission resulted Staph aureus which should be well controlled with antibiotics. Problem List Initiated/Reviewed/Updated: Yes Plan: Plan: Dressing change performed by me today. Silvdadene and xeroform applied earlier today is left in place and new gauze and kerlix roll is applied about right foot. Patient ok for discharge from my standpoint and should begin oral outpatient antibiotics and strictly follow required prescription for diabetic medications. Patient to followup in my office tomorrow or .
== END 2018-10-07 17:30 | disposition home or self-care (01) | DRG 639 ==
LOC: MW.ED 22:01 → MW.MS 23:47
PROVIDERS: ADMIT Internal Medicine; ATTEND Internal Medicine
PROC: 0HDMXZZ Extraction of Right Foot Skin, External Approach (ICD-10-PCS; principal; 2018-10-03)
DX: E11.621 Type 2 diabetes mellitus with foot ulcer (principal); L97.512 Non-pressure chronic ulcer of other part of right foot with fat layer exposed; E11.65 Type 2 diabetes mellitus with hyperglycemia; T38.3X6A Underdosing of insulin and oral hypoglycemic [antidiabetic] drugs, initial encounter; Z91.128 Patient's intentional underdosing of medication regimen for other reason; F17.210 Nicotine dependence, cigarettes, uncomplicated; B95.61 Methicillin susceptible Staphylococcus aureus infection as the cause of diseases classified elsewhere; R23.8 Other skin changes; Z79.899 Other long term (current) drug therapy
CPT/HCPCS: 36415; 71045; 71045-26; 73620-26-RT; 73620-RT; 73701-26-RT; 73701-RT; 80048; 80053; 80202; 81001; 82962; 83036; 85025; 87040; 87070; 87077; 87186; 93005; 96361; 96365; 99285; 99285-25; A9270-GY; J0696; J1644; J1815-GY; J2543; J3370; J7030; J7040; J7050; Q9967